=== PATIENT | male | born 1945 | race Caucasian/White ===

== ENCOUNTER 2016-12-19 08:05 | Inpatient (IN) ==
--- NOTE | 2016-12-19 08:24 | Emergency Department Note ---
Disposition Clinical Impression: GI bleed Qualifiers: GI bleed type/associated pathology: unspecified gastrointestinal hemorrhage type Qualified Code(s): K92.2 - Gastrointestinal hemorrhage, unspecified Disposition: Admitted As Inpatient Condition: Good [facility]errals: [facility] Care Provider[facility] - General Adult HPI - General Stated complaint: GI BLEED Time Seen by Provider: 12/19/16 08:07 Source: EMS Limitations: no limitations Vital Signs Reviewed: Yes - History of Present Illness HPI Narrative: 71 y/o male w/ total of 4BM's since 4am of BRBPR. No history of this. Colonoscopy in the last 10 years with no problem. ONly medication is lisinipril. No pain with BM's. Reports stool with blood on the outside followed by continuous. Admits to [facility]. No fever. Yesterday he had normal BM's. No fever. Feels lightheaded since this began. Went to [place] which was closed so he was sent here. Pain Scale: 0 Consistency: constant Improves with: nothing Worsens with: nothing Associated symptoms: Reports: denies other symptoms Treatments Prior to Arrival: none - Related Data Allergies Allergy/AdvReac Type Severity Reaction Status Date / Time No Known Allergies Allergy Verified 12/19/16 08:09 All systems ED: reviewed and negative except as stated. Constitutional: Denies: fever Eyes: Denies: vision change ENT ED: Denies: throat pain Cardiovascular: Denies: chest pain Respiratory: Denies: cough Gastrointestinal: Reports: hematochezia. Denies: abdominal pain, nausea, vomiting Genitourinary: Denies: dysuria Musculoskeletal: Denies: back pain Integumentary: Denies: rash Psychiatric: Denies: anxiety Endocrine: Reports: fatigue Past Medical History - Past Medical History Medical history: Reports: hypertension - Social History Smoking Status: Never smoker Smokeless Tobacco Status: No Alcohol use: Reports: none Drug use: Reports: none Physical Exam - General Limitations: no limitations General appearance: alert - Head Head exam: atraumatic - Eye Eye exam: Present: normal appearance, PERRL - ENT ENT exam: normal exam, normal oropharynx - Neck Neck exam: Present: normal inspection - Chest Chest inspection: Present: normal inspection - Respiratory Respiratory exam: Present: normal lung sounds bilaterally. Absent: respiratory distress - Cardiovascular Cardiovascular exam: Present: normal rhythm, tachycardia - Abdominal Exam Abdominal exam: Present: soft, Non-Tender - Extremities Exam Extremities exam: Present: normal inspection - Back Exam Back exam: Present: normal inspection - Neurological Exam Neurological exam: Present: alert, oriented X3 - Skin Skin exam: Present: warm, dry Course Course Narrative: GI bleed since 4am with lightheadedness. Mild tachycardia is present. BRBPR. Not on blood thinners. Will get H+H plus coags and type/screen. Positive hemaccult. Patient had a BM which was bright red blood without stool. Approx 1cm on bottom of bedside commode. - Reevaluation(s) Reevaluation #1: Hgb is stable but as he is losing blood he has not had time to equilibrate. He does feel lightheaded. Labwork otherwise stable. Accepted by Saniya for admission. Vital Signs Temperature 97.6 F 12/19/16 08:06 Pulse Rate 95 12/19/16 08:06 Respiratory Rate 18 12/19/16 08:06 Blood Pressure 150/101 12/19/16 08:06 O2 Sat by Pulse Oximetry 95 12/19/16 08:06 Temperature 97.6 F 12/19/16 08:06 Pulse Rate 95 12/19/16 08:06 Respiratory Rate 18 12/19/16 08:06 Blood Pressure 150/101 12/19/16 08:06 O2 Sat by Pulse Oximetry 95 12/19/16 08:06 Medical Decision Making - Medical Records Medical records reviewed: Yes I reviewed the patient's medical records. - Lab Data Lab results reviewed: Yes I reviewed the patient's lab results. Result diagrams: 12/19/16 08:21 12/19/16 08:21 Lab Results 12/19/16 12/19/16 12/19/16 Range/Units 08:21 08:21 08:21 WBC 4.4 (4.3-11.1) K/mcL RBC 4.38 (4.19-5.50) M/mcL Hgb 13.8 (12.9-16.9) g/dL Hct 38.4 (37.5-50.1) % MCV 87.7 (83.0-100.0) fL MCH 31.5 (28.0-33.3) pg MCHC 35.9 H (31.6-35.5) g/dL RDW 12.1 (11.5-14.5) % Plt Count 202 (140-400) K/mcL MPV 9.6 (9.4-12.4) fL Immature Gran % 0.2 (0-4) % Seg Neutrophils % 61.5 % Lymphocytes % 26.5 % Monocytes % 9.7 % Eosinophils % 1.6 % Basophils % 0.5 % Neutrophils # 2.7 (1.6-8.9) K/mcL Lymphocytes # 1.2 (0.6-4.6) K/mcL Monocytes # 0.4 (0.0-1.3) K/mcL Eosinophils # 0.1 (0.0-0.6) K/mcL Basophils # 0.0 (0.0-0.2) K/mcL PT 12.2 H (9.4-12.1) Seconds INR 1.1 APTT 29.1 (26.0-36.0) Seconds Sodium 139 (136-145) mEq/L Potassium 3.7 (3.5-4.5) mEq/L Chloride 108 (98-109) mEq/L Carbon Dioxide 21 (19-29) mEq/L BUN 16 (8-26) mg/dL Creatinine 0.71 L (0.72-1.25) mg/dL Est GFR ( Amer) > 60 (> 60) Est GFR (Non-Af Amer) > 60 (> 60) BUN/Creatinine Ratio 23 (6-26) Glucose 126 H (70-99) mg/dL Calculated Osmolality 291 (280-300) Calcium 8.6 (8.6-10.8) mg/dL - EKG Data EKG #1 EKG attestation: Yes I reviewed and interpreted this EKG. EKG shows normal: sinus rhythm Rate: normal Rhythm: NSR Sterling/QRS: normal Interpretation: no acute changes Attestation Statement - Attestation Attestation: I examined this patient and my medical decision-making was reviewed with the OBSTETRICS TECH/PA/Advanced Practice Nurse/Resident Physician. I agree with the documented findings, disposition and treatment plan as described except to the extent set forth below. Patient presents emergency Department with rectal bleeding. Patient presented to the [place] urgent care but they were not open yet. Brought here by medics. He states multiple bowel movements of bright red blood. He has had one since he has been here. On examination he is in no distress with a soft nontender abdomen. This bright red blood in the bedside commode and he has bright red blood on rectal exam. Plan. Hemoglobin stable. Patient was a significant amount of bleeding. Unknown source. Will be admitted. Attempting to get colonoscopy from the [place].
[2016-12-19 08:29] LABS: Basophils % 0.5 %; Eosinophils # 0.1 K/mcL (0.0-0.6); Eosinophils % 1.6 %; Hematocrit 38.4 % (37.5-50.1); Hemoglobin 13.8 g/dL (12.9-16.9); Immature Granulocytes % 0.2 % (0-4); Lymphocytes # 1.2 K/mcL (0.6-4.6); Lymphocytes % 26.5 %; Mean Corpuscular HGB Conc 35.9 g/dL (31.6-35.5); Mean Corpuscular Hemoglobin 31.5 pg (28.0-33.3); Mean Corpuscular Volume 87.7 fL (83.0-100.0); Mean Platelet Volume 9.6 fL (9.4-12.4); Monocytes # 0.4 K/mcL (0.0-1.3); Monocytes % 9.7 %; Neutrophils # 2.7 K/mcL (1.6-8.9); Platelet Count 202 K/mcL (140-400); Red Blood Count 4.38 M/mcL (4.19-5.50); Red Cell Distribution Width 12.1 % (11.5-14.5); Segmented Neutrophils % 61.5 %
[2016-12-19 08:36] LABS: INR 1.1; Prothrombin Time 12.2 Seconds (9.4-12.1)
[2016-12-19 08:39] LABS: Activated Partial Thrombo Time 29.1 Seconds (26.0-36.0)
[2016-12-19 08:40] LABS: BUN/Creatinine Ratio 23 (6-26); Blood Urea Nitrogen 16 mg/dL (8-26); Calcium 8.6 mg/dL (8.6-10.8); Carbon Dioxide 21 mEq/L (19-29); Chloride 108 mEq/L (98-109); Glucose 126 mg/dL (70-99); Osmolality,Calculated 291 (280-300); Potassium 3.7 mEq/L (3.5-4.5); Sodium 139 mEq/L (136-145); eGFR For African Americans > 60 (> 60); eGFR For Non-African Americans > 60 (> 60)
[2016-12-19] MEDS ORDERED: 0.9 % Sodium Chloride 1,000 ML IVC ONE (08:42)
[2016-12-19] MEDS ORDERED: Naloxone 0.4 MG/ML INJ IVP PRN (09:58)
--- NOTE | 2016-12-19 10:08 | Internal Med History&Physical ---
Date of Encounter: 12/19/16 Time of Encounter: 09:35 Internal Medicine - H&P: HPI Chief complaint: Painless bright red bleeding per rectum for 6 hours. Admitted From: Emergency Dept Plans for Post Hospital Care: Home History of present illness: Mr. Delcid is a 71 year old male 71 y/o male w/ total of 4BM's since 4am of BRBPR. No history of this. Colonoscopy in the last 10 years with no problem. ONly medication is lisinipril. No pain with BM's. Reports stool with blood on the outside followed by continuous. Admits to [facility]. No fever. Yesterday he had normal BM's. No fever. Feels lightheaded since this began. Went to [place] which was closed so he was sent here. Vital Signs Temperature 97.6 F 12/19/16 08:06 Pulse Rate 95 12/19/16 08:06 Respiratory Rate 18 12/19/16 08:06 Blood Pressure 150/101 12/19/16 08:06 O2 Sat by Pulse Oximetry 95 12/19/16 08:06 Temperature 97.6 F 12/19/16 08:06 Pulse Rate 95 12/19/16 08:06 Respiratory Rate 18 12/19/16 08:06 Blood Pressure 150/101 12/19/16 08:06 O2 Sat by Pulse Oximetry 95 12/19/16 08:06 Lab Results 12/19/16 12/19/16 12/19/16 Range/Units 08:21 08:21 08:21 WBC 4.4 (4.3-11.1) K/mcL RBC 4.38 (4.19-5.50) M/mcL Hgb 13.8 (12.9-16.9) g/dL Hct 38.4 (37.5-50.1) % MCV 87.7 (83.0-100.0) fL MCH 31.5 (28.0-33.3) pg MCHC 35.9 H (31.6-35.5) g/dL RDW 12.1 (11.5-14.5) % Plt Count 202 (140-400) K/mcL MPV 9.6 (9.4-12.4) fL Immature Gran % 0.2 (0-4) % Seg Neutrophils % 61.5 % Lymphocytes % 26.5 % Monocytes % 9.7 % Eosinophils % 1.6 % Basophils % 0.5 % Neutrophils # 2.7 (1.6-8.9) K/mcL Lymphocytes # 1.2 (0.6-4.6) K/mcL Monocytes # 0.4 (0.0-1.3) K/mcL Eosinophils # 0.1 (0.0-0.6) K/mcL Basophils # 0.0 (0.0-0.2) K/mcL PT 12.2 H (9.4-12.1) Seconds INR 1.1 APTT 29.1 (26.0-36.0) Seconds Sodium 139 (136-145) mEq/L Potassium 3.7 (3.5-4.5) mEq/L Chloride 108 (98-109) mEq/L Carbon Dioxide 21 (19-29) mEq/L BUN 16 (8-26) mg/dL Creatinine 0.71 L (0.72-1.25) mg/dL Est GFR ( Amer) > 60 (> 60) Est GFR (Non-Af Amer) > 60 (> 60) BUN/Creatinine Ratio 23 (6-26) Glucose 126 H (70-99) mg/dL Calculated Osmolality 291 (280-300) Calcium 8.6 (8.6-10.8) mg/dL Past Med Surg Social Fam HX - Past Medical History Medical history: hypertension - Social History Smoking Status: Never smoker Smokeless Tobacco Status: No Alcohol use: none Drug use: none Internal Medicine - H&P: Meds Lisinopril [Zestril] 20 mg PO DAILY 12/19/16 [History] Allergies acetaminophen [From Tylenol-Codeine #3] Allergy (Verified 12/19/16 09:01) Itching codeine [From Tylenol-Codeine #3] Allergy (Verified 12/19/16 09:01) Itching doxycycline Allergy (Verified 12/19/16 09:01) Rash tree and shrub pollen Allergy (Verified 12/19/16 09:01) Itching All Systems PM: A 10-system review of systems was performed and is negative for pertinent findings except as documented above in the HPI. - Constitutional Vitals: Temp Pulse Resp BP Pulse Ox 97.6 F 95 18 150/101 95 12/19/16 08:06 12/19/16 08:06 12/19/16 08:06 12/19/16 08:06 12/19/16 08:06 Internal Med - H&P Results - Labs CBC & Chem 7: 12/19/16 08:21 12/19/16 08:21 - VTE Reasons for not Prescribing Prophylaxis: Treatment not Indicated - Low risk for VTE
--- NOTE | 2016-12-19 10:25 | Internal Med History&Physical ---
Date of Encounter: 12/19/16 Time of Encounter: 09:30 Internal Medicine - H&P: HPI Chief complaint: Bright red bleeding per rectum since 4:00AM today. Admitted From: Emergency Dept Plans for Post Hospital Care: Home History of present illness: Mr. Delcid is a 71 year old male Mr. Delcid with medical history significant for hypertension, peptic ulcer disease presents with painless bright red bleeding per rectum starting at 4:00AM today. No tenesmus. Blood large fluid, only a littel clots. . No fever chills or rigor, no urinary symptoms, no diarrhea or constipation, no new-onset neurological symptoms. No chest pain, SOB, he reports mild lightheadedness. no weight gain. He was in the [place] [facility] this morning and was referred to [facility] ED. No Went to [place] which was closed so he was sent here. He underwent colonoscopy at the [facility] 1 year ago, this was reported as normal (patient's account). No personal or family history of gastrointestinal cancers. He is FULL CODE as per discussion, he nominates his sister in law, Ranjith Delcid ([phone]). ROS: A 10-point ROS was performed, positives and relevant negatives are detailed , system-symptom not mentioned assumed negative unless otherwise stated. Family history: Father, mother and sister have emphysema Vital Signs Temperature 97.6 F 12/19/16 08:06 Pulse Rate 95 12/19/16 08:06 Respiratory Rate 18 12/19/16 08:06 Blood Pressure 150/101 12/19/16 08:06 O2 Sat by Pulse Oximetry 95 12/19/16 08:06 Temperature 97.6 F 12/19/16 08:06 Pulse Rate 95 12/19/16 08:06 Respiratory Rate 18 12/19/16 08:06 Blood Pressure 150/101 12/19/16 08:06 O2 Sat by Pulse Oximetry 95 12/19/16 08:06 O/E: Not in distress, not ill or toxic looking HEENT: Not pale, anicteric, acyanotic, afebrile, mild tachypnea. Chest: CTAB Heart: RRR (@ (66), HS1.2 no murmur Abdomen: soft, non-tender, no masses. BS+. Bed side putty contains ateast 150 mls of laila blood. : no flank tenderness, no CVA tenderness, no suprapubic tenderness. MERCHANDISING [employer] LEAD: aao x 3, no focal neurological deficits. Psychiatry: mood is good, affect is congruent, speech is normal, thought process is logical and goal-directed. Extremities: no pedal edema, normal pedal pulse, no calf tenderness. Lab Results 12/19/16 12/19/16 12/19/16 Range/Units 08:21 08:21 08:21 WBC 4.4 (4.3-11.1) K/mcL RBC 4.38 (4.19-5.50) M/mcL Hgb 13.8 (12.9-16.9) g/dL Hct 38.4 (37.5-50.1) % MCV 87.7 (83.0-100.0) fL MCH 31.5 (28.0-33.3) pg MCHC 35.9 H (31.6-35.5) g/dL RDW 12.1 (11.5-14.5) % Plt Count 202 (140-400) K/mcL MPV 9.6 (9.4-12.4) fL Immature Gran % 0.2 (0-4) % Seg Neutrophils % 61.5 % Lymphocytes % 26.5 % Monocytes % 9.7 % Eosinophils % 1.6 % Basophils % 0.5 % Neutrophils # 2.7 (1.6-8.9) K/mcL Lymphocytes # 1.2 (0.6-4.6) K/mcL Monocytes # 0.4 (0.0-1.3) K/mcL Eosinophils # 0.1 (0.0-0.6) K/mcL Basophils # 0.0 (0.0-0.2) K/mcL PT 12.2 H (9.4-12.1) Seconds INR 1.1 APTT 29.1 (26.0-36.0) Seconds Sodium 139 (136-145) mEq/L Potassium 3.7 (3.5-4.5) mEq/L Chloride 108 (98-109) mEq/L Carbon Dioxide 21 (19-29) mEq/L BUN 16 (8-26) mg/dL Creatinine 0.71 L (0.72-1.25) mg/dL Est GFR ( Amer) > 60 (> 60) Est GFR (Non-Af Amer) > 60 (> 60) BUN/Creatinine Ratio 23 (6-26) Glucose 126 H (70-99) mg/dL Calculated Osmolality 291 (280-300) Calcium 8.6 (8.6-10.8) mg/dL CT abdomen: Pancolonic diverticulosis with evidence of diverticulitis Uncomplicated cholelithiasis IMP Major diverticular bleeding Chronic morbidities HTN PLAN Admit Type and screen Transfuse as indicated to keep HH>8 IVF NS @100 Trend HH Hold Lisinopril for now Clear liquid diet Low risk for DVT, no indication for DVT prophylaxis No indication for GI prophylaxis. Obtain records of last year's colonoscopy from the [facility]. I discussed my assessment with the patient with the patient, he verbalized understanding and is agreeable to admission. He is admitted due to high risk for continuing major lower GI bleeding. Past Med Surg Social Fam HX - Past Medical History Medical history: hypertension - Social History Smoking Status: Never smoker Smokeless Tobacco Status: No Alcohol use: none Drug use: none Internal Medicine - H&P: Meds Lisinopril [Zestril] 20 mg PO DAILY 12/19/16 [History] Allergies acetaminophen [From Tylenol-Codeine #3] Allergy (Verified 12/19/16 09:01) Itching codeine [From Tylenol-Codeine #3] Allergy (Verified 12/19/16 09:01) Itching doxycycline Allergy (Verified 12/19/16 09:01) Rash tree and shrub pollen Allergy (Verified 12/19/16 09:01) Itching All Systems PM: A 10-system review of systems was performed and is negative for pertinent findings except as documented above in the HPI. - Constitutional Vitals: Temp Pulse Resp BP Pulse Ox 97.6 F 95 18 150/101 95 12/19/16 08:06 12/19/16 08:06 12/19/16 08:06 12/19/16 08:06 12/19/16 08:06 Internal Med - H&P Results - Labs CBC & Chem 7: 12/19/16 08:21 12/19/16 08:21 - VTE Reasons for not Prescribing Prophylaxis: Treatment not Indicated - Low risk for VTE
[2016-12-19] MEDS: 0.9 % Sodium Chloride 1,000 ML IVC SCH ×2 (10:54→21:39)
[2016-12-19 12:49] LABS: Hematocrit 36.6 % (37.5-50.1); Hemoglobin 12.9 g/dL (12.9-16.9)
[2016-12-19] MEDS ORDERED: SODIUM CHLORIDE/NAHCO3/KCL/PEG 4,000 ML SOLN.RECON PO ONE (14:10)
--- NOTE | 2016-12-19 14:15 | Event Note ---
Date of Encounter: 12/19/16 Time of Encounter: 14:00 Patient seen with lower GI bleed most probably diverticular versus rule out other etiology. Recommendation: Follow H&H. Colonoscopy in a.m.
[2016-12-19] MEDS: Ondansetron 4 MG/2 ML VIAL IVP PRN (18:13)
[2016-12-19] MEDS ORDERED: Acetaminophen 325 MG TABLET PO ONE (18:22)
[2016-12-19] MEDS: Loratadine 10 MG TABLET PO SCH (18:40)
[2016-12-19 19:37] LABS: Hematocrit 34.5 % (37.5-50.1); Hemoglobin 12.3 g/dL (12.9-16.9)
[2016-12-20 00:47] LABS: Hematocrit 33.6 % (37.5-50.1); Hemoglobin 11.6 g/dL (12.9-16.9)
[2016-12-20 06:23] LABS: Hematocrit 34.6 % (37.5-50.1); Hemoglobin 11.9 g/dL (12.9-16.9)
[2016-12-20] MEDS: Loratadine 10 MG TABLET PO SCH (09:00)
--- NOTE | 2016-12-20 11:05 | Gastroenterology Consult Note ---
<Nima Wynn - Last Filed: 12/20/16 11:03> Date of Encounter: 12/20/16 Time of Encounter: 09:45 - Assessment and plan (1) GI bleed Current Visit: Yes Status: Acute Assessment and plan: Likely due to diverticular bleed. Keep pt NPO. Plan for colonoscopy today to evaluate. Qualifiers: GI bleed type/associated pathology: unspecified gastrointestinal hemorrhage type Qualified Code(s): K92.2 - Gastrointestinal hemorrhage, unspecified (2) Anemia Current Visit: Yes Status: Acute Assessment and plan: Secondary to GI bleeding. Continue to monitor CBC and transfuse PRBC as needed. Qualifiers: Anemia type: unspecified type Qualified Code(s): D64.9 - Anemia, unspecified (3) Diverticulosis Current Visit: Yes Status: Acute Assessment and plan: Noted on CT scan. Recommend daily fiber supplement. Qualifiers: Diverticulosis site: diverticulosis of large intestine Diverticulosis bleeding: diverticulosis with bleeding Qualified Code(s): K57.31 - Diverticulosis of large intestine without perforation or abscess with bleeding - Time Spent With Patient Total time spent is greater than 50% in coordination of care (as documented) at patient's floor/unit and/or counseling patient: GI History of Present Illness - Data of Consult Patient: new to practice Consult date: 12/20/16 Requesting Physician: Berny Benton - Consult Narrative Reason for consult: Lower GI Bleed History of present illness: Mr. Delcid is a 71 year old male with PMHx of HTN who presented to the ED with painless BRBPR that started at 4:00AM the day of admission. He went to the [place] which was closed and was sent here. He reports large amount of bright red blood with BM. He denies diarrhea, constipation, fever, chills, SOB, or chest pain. He reports having a colonoscopy at the [facility] 2-3 years ago which was normal. No family history of colon cancer. We were consulted to evaluate his GI bleeding. Procedures: Colonoscopy at [facility] 2-3 years ago, normal per pt report NSAIDs: None Anticoagulation: None Past Med Surg Social Fam HX - Past Medical History Medical history: hypertension - Social History Smoking Status: Never smoker Smokeless Tobacco Status: No Alcohol use: none Drug use: none - Gastrointestinal Gastrointestinal: Present: as per HPI - Constitutional Constitutional: as per HPI - EENT Eyes: as per HPI Ears: Present: as per HPI Nose, mouth and throat: Present: as per HPI - Cardiovascular Cardiovascular ROS: Present: as per HPI - Respiratory Respiratory IM: Present: as per HPI - Genitourinary Genitourinary: Absent: change in color, Urinary frequency - Neurological ROS Neurological GI: Present: as per HPI - Hematologic/Lymphatic Hematologic/Lymphatic pediatric: Present: as per HPI - Musculoskeletal Musculoskeletal ROS GI: Present: as per HPI - Integumentary Integumentary GI: Present: as per HPI - Psychiatric ROS Psychiatric GI: Present: as per HPI - Endocrine Endocrine IM: Present: as per HPI - Constitutional Vitals: Temp Pulse Resp BP Pulse Ox 97.7 F 58 16 144/80 95 12/20/16 07:16 12/20/16 07:16 12/20/16 07:16 12/20/16 07:16 12/20/16 07:16 General appearance: Present: cooperative, A&O X 3, no acute distress, answers questions appropriately - Head Head exam: Present: atraumatic, normocephalic - Eye Eye exam: Present: normal appearance, sclera anicteric - ENT ENT exam: Present: mucous membranes dry - Neck Neck exam general surgery: Present: normal inspection, trachea midline - Respiratory Respiratory exam: Present: CTAB. Absent: rales, rhonchi - Cardiovascular Cardiovascular exam: Present: RRR, +S1, +S2 - GI/Abdominal GI/Abdominal exam: Present: soft, no peritoneal signs. Absent: distended, firm , guarding, tenderness - Rectal Rectal exam: Present: deferred - Extremities Exam Extremities exam: Present: warm - Neurological Exam Neurological exam: Present: no focal deficits - Psychiatric Psychiatric exam: Present: normal affect, normal mood - Skin Skin exam: Present: dry, intact, normal color, warm Results - Labs CBC & Chem 7: 12/20/16 05:45 12/19/16 08:21 Labs: Last Result Calcium 8.6 mg/dL (8.6-10.8) 12/19/16 08:21 Stool Occult Blood Positive (Negative) A 12/19/16 08:45 Entire Visit Hgb 11.9 g/dL (12.9-16.9) L 12/20/16 05:45 Hct 34.6 % (37.5-50.1) L 12/20/16 05:45 PT 12.2 Seconds (9.4-12.1) H 12/19/16 08:21 - ABG ABG results: PT/INR, D-dimer PT 12.2 Seconds (9.4-12.1) H 12/19/16 08:21 - Impressions Impressions Abdomen/Pelvis CT 12/19/16 09:33 IMPRESSION: 1. Pancolonic diverticulosis without associated acute inflammatory changes. 2. No acute abdominal or pelvic abnormality. 3. Uncomplicated cholelithiasis. D/ / 12/19/2016 10:35:16 Abdiel Mi MD / yoanna Interpreting Provider: Abdiel Mi MD Consult Discharge Plan - Plan [facility]errals: [facility] [Primary Care Provider] - <Jesus Ko - Last Filed: 12/20/16 12:21> Date of Encounter: 12/20/16 Time of Encounter: 14:00 - Time Spent With Patient Total time spent is greater than 50% in coordination of care (as documented) at patient's floor/unit and/or counseling patient: GI History of Present Illness - Data of Consult Requesting Physician: Berny Benton - Consult Narrative History of present illness: Mr. Delcid is a 71 year old male - Constitutional Vitals: Temp Pulse Resp BP Pulse Ox 97.9 F 66 16 159/89 97 12/20/16 11:54 12/20/16 11:54 12/20/16 11:54 12/20/16 11:54 12/20/16 11:54 Results - Labs CBC & Chem 7: 12/20/16 05:45 12/19/16 08:21 Labs: Last Result Calcium 8.6 mg/dL (8.6-10.8) 12/19/16 08:21 Stool Occult Blood Positive (Negative) A 12/19/16 08:45 Entire Visit Hgb 11.9 g/dL (12.9-16.9) L 12/20/16 05:45 Hct 34.6 % (37.5-50.1) L 12/20/16 05:45 PT 12.2 Seconds (9.4-12.1) H 12/19/16 08:21 - ABG ABG results: PT/INR, D-dimer PT 12.2 Seconds (9.4-12.1) H 12/19/16 08:21 - Impressions Impressions Abdomen/Pelvis CT 12/19/16 09:33
[2016-12-20] MEDS ORDERED: Simethicone 40 MG/0.6 ML MLS IR ONE (12:22)
--- NOTE | 2016-12-20 12:23 | Pre-Sedation Evaluation ---
Pre-sedation evaluation - Pre-sedation checklist Date of procedure: 12/20/16 Recent Vitals: Last Vital Signs Temp 97.9 F 12/20/16 11:54 Pulse 66 12/20/16 11:54 Resp 16 12/20/16 11:54 BP 159/89 12/20/16 11:54 Pulse Ox 97 12/20/16 11:54 ASA Classification *see protocol: CLASS III-Severe systemic disease Plan of Care: Pt appropriate candidate for procedure/moderate/conscious sedation , Risks/benefits of procedure/sedation discussed w/ patient/family
[2016-12-20] MEDS ORDERED: *HR* FentaNYL (PF) 100 MCG/2 ML VIAL ONE (12:24)
[2016-12-20] MEDS ORDERED: *HR* Midazolam HCl 5 MG/5 ML VIAL IVP ONE (12:24)
[2016-12-20] MEDS: *HR* Midazolam HCl 5 MG/5 ML VIAL IVP PRN ×3 (12:27→12:31)
[2016-12-20] MEDS: *HR* FentaNYL (PF) 100 MCG/2 ML VIAL IVP PRN ×3 (12:27→12:31)
--- NOTE | 2016-12-20 13:06 | Internal Med Progress Note ---
<Mazin Delatorre - Last Filed: 12/20/16 13:39> Date of Encounter: 12/20/16 Time of Encounter: 09:50 - Assessment and plan (1) GI bleed Current Visit: Yes Status: Acute Assessment and plan: Most likely lower given his description. would highly suspect diverticulosis. Last episode of bleeding at approximately 4:00 AM Currently hemodynamically stable. [facility] NPO GI consulted and will have C scope later today. follow H/H transfuse if he becomes symptomatic or Hg < 7.0. Qualifiers: GI bleed type/associated pathology: unspecified gastrointestinal hemorrhage type Qualified Code(s): K92.2 - Gastrointestinal hemorrhage, unspecified (2) Acute blood loss anemia Current Visit: Yes Status: Acute Assessment and plan: secondary to #1 hemodynamically stable continue to follow vitals and H/H (3) Hypertension Current Visit: Yes Status: Acute Assessment and plan: currently within goal. Will plan to add back home medication in the AM if no further bleeding. (4) Sinusitis Current Visit: Yes Status: Acute Assessment and plan: Patient states he had onset of symptoms approximately 6-7 days ago. No fever. likely viral or allergic will treat symptomatically. (5) DVT prophylaxis Current Visit: Yes Status: Acute Assessment and plan: EPCDS - Subjective Interval history: Mr. Delcid is a 71 y.o. male who states his only past medical history is hypertension. He states that he began to have bright red blood per rectum yesterday afternoon and that it was " pouring out". he states that this stopped at approximately 4AM. He denies any abdominal pain. Admits to mild nausea and states that this is secondary to not having had anything to eat. He denies any fever or chills. He has no syncope or presyncope. he dose complain of some mild sinus pressure and rhinorrhea over the past 6-7 days. Denies cough wheeze or dyspnea. He has no further complaints or concerns at this time. - Constitutional Vitals: Temp Pulse Resp BP Pulse Ox 97.9 F 65 16 135/68 96 12/20/16 12:24 12/20/16 12:47 12/20/16 12:47 12/20/16 12:47 12/20/16 12:47 - Head Head exam: Present: atraumatic, normocephalic - Eye Eye exam: Present: PERRL, conjuntiva pink, sclera anicteric Pupils: Present: PERRL - Neck Neck exam general surgery: Present: supple, trachea midline. Absent: lymphadenopathy - Respiratory Respiratory exam: Present: CTAB. Absent: accessory muscle use, rales, rhonchi, wheezes - Cardiovascular Cardiovascular exam: Present: RRR, +S1, +S2. Absent: diastolic murmur, gallop, rubs, systolic murmur - GI/Abdominal GI/Abdominal exam: Present: normal bowel sounds, soft, no peritoneal signs. Absent: distended, tenderness - Rectal Rectal exam: Present: deferred (patietn states he will get colonoscopy this AM. ) - Extremities Exam Extremities exam: Present: warm, radial pulses palpable and symetrical. Absent : calf tenderness, cyanotic, pedal edema - Skin Skin exam: Present: dry, intact Internal Medicine: Result - Labs CBC & Chem 7: 12/20/16 05:45 12/19/16 08:21 Labs: Short CBC 12/19/16 12/20/16 12/20/16 Range/Units 19:06 00:25 05:45 Hgb 12.3 L 11.6 L 11.9 L (12.9-16.9) g/dL Hct 34.5 L 33.6 L 34.6 L (37.5-50.1) % - ABG Interpretation ABG results: PT/INR, D-dimer PT 12.2 Seconds (9.4-12.1) H 12/19/16 08:21 - Impressions Impressions Abdomen/Pelvis CT 12/19/16 09:33 IMPRESSION: 1. Pancolonic diverticulosis without associated acute inflammatory changes. 2. No acute abdominal or pelvic abnormality. 3. Uncomplicated cholelithiasis. D/ / 12/19/2016 10:35:16 Abdiel Mi MD / yoanna Interpreting Provider: Abdiel Mi MD - VTE Reasons for not Prescribing Prophylaxis: Treatment not Indicated - Low risk for VTE Consult Discharge Plan - Plan [facility]errals: [facility] [Primary Care Provider[facility] - <Berny Benton - Last Filed: 12/20/16 18:07> - Constitutional Vitals: Temp Pulse Resp BP Pulse Ox 97.5 F L 67 16 165/102 94 L 12/20/16 16:15 12/20/16 16:15 12/20/16 16:15 12/20/16 16:15 12/20/16 16:15 Internal Medicine: Result - Labs CBC & Chem 7: 12/20/16 13:39 12/19/16 08:21 - ABG Interpretation ABG results: PT/INR, D-dimer PT 12.2 Seconds (9.4-12.1) H 12/19/16 08:21 - Attending Attestation I examined this patient and my medical decision-making was reviewed with the SENIOR INTERNATIONAL TAX MANAGER/PA/Advanced Practice Nurse/Resident Physician. I agree with the documented findings, disposition and treatment plan as described except to the extent set forth below. Clonoscopy done, will monitor hb tomorow in am. Advance diet. Possible d/c tomorow in am if hb stable/
[2016-12-20] MEDS ORDERED: Saline Nasal Spray 44 ML BOTTLE NS PRN (13:09)
[2016-12-20] MEDS ORDERED: Acetaminophen 325 MG TABLET PO PRN (13:10)
[2016-12-20 13:47] LABS: Hematocrit 35.7 % (37.5-50.1); Hemoglobin 12.3 g/dL (12.9-16.9)
[2016-12-20] MEDS: Cetirizine HCl 5 MG/5 ML UDC PO SCH (14:31)
[2016-12-20] MEDS: Lisinopril 20 MG TABLET PO SCH (16:26)
[2016-12-20] MEDS: Ondansetron 4 MG/2 ML VIAL IVP PRN (23:51)
--- NOTE | 2016-12-21 06:15 | Electrocardiograph Report ---
[place] [id number] Test Date: 2016-12-19 Pat Name: Pino Delcid Department: 104 Room: 2A22 Gender: M Student Accounts Manager: : 1945 Requested By: Eric Rodarte Order Number: [id number] Reading MD: Raúl Vuong MD Measurements Intervals [place] Rate: 65 P: 45 AR: 195 QRS: -27 QRSD: 89 T: 9 QT: 403 QTc: 414 Interpretive Statements SINUS RHYTHM BORDERLINE LEFT AXIS DEVIATION Electronically Signed On 12-21-2016 6:13:41 EST by Raúl Vuong MD
[2016-12-21 06:37] LABS: Basophils % 0.3 %; Eosinophils # 0.1 K/mcL (0.0-0.6); Eosinophils % 2.4 %; Hematocrit 29.2 % (37.5-50.1); Immature Granulocytes % 0.3 % (0-4); Lymphocytes # 1.6 K/mcL (0.6-4.6); Lymphocytes % 27.4 %; Mean Corpuscular HGB Conc 35.3 g/dL (31.6-35.5); Mean Corpuscular Hemoglobin 31.2 pg (28.0-33.3); Mean Corpuscular Volume 88.5 fL (83.0-100.0); Mean Platelet Volume 10.2 fL (9.4-12.4); Monocytes # 0.5 K/mcL (0.0-1.3); Monocytes % 7.8 %; Neutrophils # 3.7 K/mcL (1.6-8.9); Platelet Count 204 K/mcL (140-400); Segmented Neutrophils % 61.8 %
[2016-12-21 06:38] LABS: Hemoglobin 10.3 g/dL (12.9-16.9)
--- NOTE | 2016-12-21 06:47 | Discharge Summary ---
<Mazin Delatorre - Last Filed: 12/21/16 17:31> Date of Encounter: 12/21/16 Time of Encounter: 15:43 - Discharge Diagnosis (1) GI bleed Priority: Primary Status: Acute Qualifiers: GI bleed type/associated pathology: unspecified gastrointestinal hemorrhage type Qualified Code(s): K92.2 - Gastrointestinal hemorrhage, unspecified (2) Acute blood loss anemia Priority: Primary Status: Acute (3) Hypertension Priority: Secondary Status: Acute Qualifiers: Qualified Code(s): I10 - Essential (primary) hypertension (4) Sinusitis Priority: Secondary Status: Acute Qualifiers: Qualified Code(s): J32.9 - Chronic sinusitis, unspecified (5) DVT prophylaxis Priority: Secondary Status: Acute (6) Diverticulosis Priority: Primary Status: Acute Qualifiers: Qualified Code(s): K57.90 - Diverticulosis of intestine, part unspecified, without perforation or abscess without bleeding - Discharge Medications Prescriptions: Saline Nasal [place] [[employer] Nasal [place]] 2 spray NS Q2H PRN #1 bottle PRN Reason: Congestion Home Medications: Lisinopril [Zestril] 20 mg PO DAILY 12/19/16 [History] Loratadine [Claritin] 10 mg PO DAILY tablet 12/21/16 [Rx] Saline Nasal [place] [[employer] Nasal [place]] 2 spray NS Q2H PRN #1 bottle 12/21/16 [Rx ] Allergies/Adverse Reactions: Allergies acetaminophen [From Tylenol-Codeine #3] Allergy (Verified 12/19/16 09:01) Itching codeine [From Tylenol-Codeine #3] Allergy (Verified 12/19/16 09:01) Itching doxycycline Allergy (Verified 12/19/16 09:01) Rash tree and shrub pollen Allergy (Verified 12/19/16 09:01) Itching Date of admission: 12/20/16 16:23 [facility] Discharging clinician: Mazin Delatorre Anticipated date of discharge: 12/21/16 - Patient Status Disposition: Home, Self-Care Condition: Good Functional capacity at discharge: independent ambulation Overall status at discharge: patient is back to baseline - Discharge Instructions Instructions: Gastrointestinal Bleeding (DC), Anemia (GEN) Follow Up With: DANIEL,PCP [Primary Care Provider] - 01/03/17 3:30 pm Forms: ED Satisfaction Letter - Diet and Activity Activity: increase activity as tolerated Diet: advance to your usual diet Hospital course: Mr. Delcid is a 71 year old male with pmh of HTN, who was admitted to [facility] for GI bleed. It was bright red blood per rectum and likely a lower GI bleed. He would undergo colonoscopy which revealed 2 polyps and diverticulosis throughout the colon. No active bleeding was seen. Most likely his bleeding was secondary to his diverticulosis. He has had no more bloody bowel movements since his colonoscopy yesterday. Hg is stable and is 10.5 today. His vitals are within normal limits. He has no complaints this AM. We will discharge him to follow up with [facility] PCP [facility]. - Time Spent with Patient Total time spent providing and/or coordinating discharge services: Less than 30 minutes - Constitutional Vitals: Temp Pulse Resp BP Pulse Ox 98.0 F 70 20 154/92 95 12/21/16 04:40 12/21/16 04:40 12/21/16 04:40 12/21/16 04:40 12/21/16 04:40 General appearance: Present: A&O X 3, pleasant, no acute distress - Head Head exam: Present: atraumatic, normocephalic - Eye Eye exam: Present: PERRL, conjuntiva pink, sclera anicteric Pupils: Present: PERRL - Neck Neck exam general surgery: Present: supple, trachea midline. Absent: lymphadenopathy - Respiratory Respiratory exam: Present: CTAB. Absent: accessory muscle use, rales, rhonchi, wheezes - Cardiovascular Cardiovascular exam: Present: RRR, +S1, +S2. Absent: diastolic murmur, gallop, rubs, systolic murmur - GI/Abdominal GI/Abdominal exam: Present: normal bowel sounds, soft, no peritoneal signs. Absent: distended, tenderness - Extremities Exam Extremities exam: Present: warm, radial pulses palpable and symetrical. Absent : calf tenderness, cyanotic, pedal edema - Skin Skin exam: Present: dry, intact - VTE Reasons for not Prescribing Prophylaxis: Treatment not Indicated - Low risk for VTE <Berny Benton - Last Filed: 12/22/16 07:13> Date of admission: 12/20/16 16:23 Primary care physician: PCP [facility] Hospital course: Mr. Delcid is a 71 year old male - Time Spent with Patient Total time spent providing and/or coordinating discharge services: - Constitutional Vitals: Temp Pulse Resp BP Pulse Ox 98.1 F 66 17 139/84 96 12/21/16 15:16 12/21/16 15:16 12/21/16 15:16 12/21/16 15:16 12/21/16 15:16 - Attending Attestation I examined this patient and my medical decision-making was reviewed with the MANAGER WATER WASTEWATER/PA/Advanced Practice Nurse/Resident Physician. I agree with the documented findings, disposition and treatment plan as described except to the extent set forth below. Agree with Dr. Delatorre. GI bleeding due to diverticular disease. Hb stable, GI input noted. D/C home today. D/W patient.
[2016-12-21 06:53] LABS: BUN/Creatinine Ratio 11 (6-26); Blood Urea Nitrogen 8 mg/dL (8-26); Calcium 7.7 mg/dL (8.6-10.8); Carbon Dioxide 22 mEq/L (19-29); Chloride 113 mEq/L (98-109); Glucose 115 mg/dL (70-99); Osmolality,Calculated 291 (280-300); Potassium 3.6 mEq/L (3.5-4.5); Sodium 141 mEq/L (136-145); eGFR For African Americans > 60 (> 60); eGFR For Non-African Americans > 60 (> 60)
[2016-12-21] MEDS ORDERED: Lisinopril 20 MG TABLET PO SCH (09:00)
[2016-12-21] MEDS: Cetirizine HCl 5 MG/5 ML UDC PO SCH (09:26)
[2016-12-21] MEDS: Loratadine 10 MG TABLET PO SCH (09:26)
[2016-12-21] MEDS: Lisinopril 20 MG TABLET PO SCH (09:26)
[2016-12-21] MEDS: 0.9 % Sodium Chloride 1,000 ML IVC SCH (09:28)
--- NOTE | 2016-12-21 11:48 | Gastroenterology Progress Note ---
Date of Encounter: 12/21/16 Time of Encounter: 10:00 - Assessment and plan (1) Rectal bleeding Current Visit: Yes Status: Acute Assessment and plan: Most probably due to diverticulosis. No rectal bleeding. From GI point of view patient is okay to be discharged. - Time Spent With Patient Total time spent is greater than 50% in coordination of care (as documented) at patient's floor/unit and/or counseling patient: - Subjective Interval history: Mr. Delcid is a 71 y.o. male who is in the hospital because of rectal bleeding. No more bleeding at this point denies any abdominal pain. - Constitutional Vitals: Temp Pulse Resp BP Pulse Ox 97.9 F 64 17 148/80 96 12/21/16 11:17 12/21/16 11:17 12/21/16 11:17 12/21/16 11:17 12/21/16 11:17 General appearance: Present: cooperative, A&O X 3, no acute distress, answers questions appropriately - GI/Abdominal GI/Abdominal exam: Present: soft Additional comments: No focal left-sided tenderness - Skin Skin exam: Present: dry, warm Results - Labs CBC & Chem 7: 12/21/16 06:01 12/21/16 06:01 Labs: Last Result Calcium 7.7 mg/dL (8.6-10.8) L 12/21/16 06:01 Stool Occult Blood Positive (Negative) A 12/19/16 08:45 Entire Visit Hgb 10.3 g/dL (12.9-16.9) L D 12/21/16 06:01 Hct 29.2 % (37.5-50.1) L 12/21/16 06:01 PT 12.2 Seconds (9.4-12.1) H 12/19/16 08:21 - ABG ABG results: PT/INR, D-dimer PT 12.2 Seconds (9.4-12.1) H 12/19/16 08:21 - VTE Reasons for not Prescribing Prophylaxis: Treatment not Indicated - Low risk for VTE Consult Discharge Plan - Plan [facility]errals: [facility] [Primary Care Provider] - 01/03/17 3:30 pm Prescriptions: Saline Nasal [place] [[place] Nasal [place]] 2 spray NS Q2H PRN #1 bottle PRN Reason: Congestion
[2016-12-21 12:44] LABS: Hemoglobin 10.5 g/dL (12.9-16.9)
[2016-12-21 15:17] VITALS: BP 139/84
== END 2016-12-21 16:55 | disposition home or self-care (01) | DRG 348 ==
LOC: EMEROO 08:05 → 2ANU 08:05 → SUATTDRO 08:59 → 2ANU 11:16
PROVIDERS: ADMIT Internal Medicine; ATTEND Internal Medicine

== ENCOUNTER 2016-12-25 01:35 | Inpatient (IN) ==
[2016-12-25] MEDS ORDERED: Ondansetron 4 MG/2 ML VIAL IVP ONE (02:12)
[2016-12-25] MEDS ORDERED: 0.9 % Sodium Chloride 1,000 ML IVC ONE (02:12)
--- NOTE | 2016-12-25 02:15 | Emergency Department Note ---
Disposition Clinical Impression: Lower gastrointestinal hemorrhage Disposition: Admitted As Inpatient Condition: Fair Referrals: [facility] [Primary Care Provider] - Forms: ED Satisfaction Letter Time of Disposition: 03:19 GI Bleed HPI - General Chief complaint: ED GI Bleed Stated complaint: bright red rectal bleeding Time Seen by Provider: 12/25/16 02:12 Source: patient Mode of arrival: ambulatory Limitations: no limitations Nursing Notes Reviewed: Yes Vital Signs Reviewed: Yes - History of Present Illness HPI Narrative: Patient presents to the ED for complaints of bright red rectal bleeding. He was admitted last week for same complaint. He did receive a colonoscopy which showed diverticulosis, and was discharged to home on Saturday. He states through the weekend he continued to have bloody rectal stools, about 40-50 stoolings since that time. Today he states he is having stooling several times an hour. 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 No emesis reported. . His Hgb on 10/18 was 12.3, today it has dropped to 8.6. Pt Subjective Complaint: gross bloody stools Onset (ago): day(s) (4) Consistency: Worsening Severity: moderate, severe Improves with: nothing Context: history of GI bleed Associated symptoms: Reports: nausea, loss of appetite. Denies: vomiting Treatments Prior to Arrival: none - Related Data Home Medications Medication Instructions Recorded Confirmed Lisinopril [Zestril] 20 mg PO DAILY 12/19/16 12/19/16 Previous Rx's Medication Instructions Recorded Loratadine [Claritin] 10 mg PO DAILY tablet 12/21/16 Saline Nasal [place] [[place] Nasal 2 spray NS Q2H PRN #1 bottle 12/21/16 [place]] Allergies Allergy/AdvReac Type Severity Reaction Status Date / Time acetaminophen Allergy Itching Verified 12/25/16 01:36 [From Tylenol-Codeine #3] codeine Allergy Itching Verified 12/25/16 01:36 [From Tylenol-Codeine #3] doxycycline Allergy Rash Verified 12/25/16 01:36 tree and shrub pollen Allergy Itching Verified 12/25/16 01:36 All systems ED: reviewed and negative except as stated. Constitutional: Denies: fever, chills, weakness, weight change Cardiovascular: Denies: chest pain, palpitations, dyspnea on exertion, edema, syncope Respiratory: Denies: cough, dyspnea, wheezes, hemoptysis, stridor Gastrointestinal: Reports: nausea, hematochezia. Denies: vomiting Genitourinary: Denies: urgency, dysuria, frequency, hematuria Past Medical History - Past Medical History Attestation: Yes The following information was validated with the patient. Source: patient, nursing notes reviewed Medical history: Reports: hypertension, other Psychiatric history: Reports: no psych history - Social History Smoking Status: Never smoker Smokeless Tobacco Status: No Alcohol use: Reports: none Drug use: Reports: marijuana Physical Exam - General Limitations: no limitations General appearance: alert - Head Head exam: atraumatic, normocephalic, normal inspection - Eye Eye exam: Present: normal appearance, PERRL, EOMI - ENT ENT exam: normal exam, normal oropharynx, mucous membranes moist - Neck Neck exam: Present: normal inspection, full ROM, trachea midline - Chest Chest inspection: Present: normal inspection, symmetric chest wall rise - Respiratory Respiratory exam: Present: normal lung sounds bilaterally - Cardiovascular Cardiovascular exam: Present: regular rate, normal rhythm, normal heart sounds - Abdominal Exam Abdominal exam: Present: soft, Non-Tender, normal bowel sounds. Absent: distention, guarding, rebound - Rectal Exam Rectal exam: Present: heme (+) stool. Absent: hemorrhoids, mass, tenderness - Extremities Exam Extremities exam: Present: normal inspection, full ROM. Absent: tenderness, pedal edema - Neurological Exam Neurological exam: Present: alert, oriented X3 - Psychiatric Psychiatric exam: Present: normal affect, normal mood - Skin Skin exam: Present: warm, dry, intact, normal color Course - Consultations Consultation #1: Spoke with hospitalist, Dr. Moreno who accepted patient for admission to the hospital. Time: 02:50 Vital Signs Temperature 97.9 F 12/25/16 01:36 Pulse Rate 104 12/25/16 01:36 Respiratory Rate 20 12/25/16 01:36 Blood Pressure 155/89 12/25/16 01:36 O2 Sat by Pulse Oximetry 100 12/25/16 01:36 Temperature 97.9 F 12/25/16 01:36 Pulse Rate 104 12/25/16 01:36 Respiratory Rate 20 12/25/16 01:36 Blood Pressure 155/89 12/25/16 01:36 O2 Sat by Pulse Oximetry 100 12/25/16 01:36 Oxygen Delivery Oxygen Delivery Room Air GI Bleed - Differential Diagnosis Likely: hematochezia
[2016-12-25 02:20] LABS: Basophils % 0.5 %; Eosinophils # 0.2 K/mcL (0.0-0.6); Eosinophils % 2.4 %; Hematocrit 24.8 % (37.5-50.1); Immature Granulocytes % 2.5 % (0-4); Lymphocytes # 2.9 K/mcL (0.6-4.6); Lymphocytes % 33.7 %; Mean Corpuscular HGB Conc 34.7 g/dL (31.6-35.5); Mean Corpuscular Hemoglobin 31.2 pg (28.0-33.3); Mean Corpuscular Volume 89.9 fL (83.0-100.0); Mean Platelet Volume 10.1 fL (9.4-12.4); Monocytes # 0.8 K/mcL (0.0-1.3); Monocytes % 8.8 %; Neutrophils # 4.5 K/mcL (1.6-8.9); Nucleated Red Blood Cells 0.3 /100 WBC (0); Platelet Count 356 K/mcL (140-400); Red Blood Count 2.76 M/mcL (4.19-5.50); Segmented Neutrophils % 52.1 %
[2016-12-25 02:24] LABS: Hemoglobin 8.6 g/dL (12.9-16.9)
[2016-12-25 02:29] LABS: INR 1.1; Prothrombin Time 12.4 Seconds (9.4-12.1)
[2016-12-25 02:31] LABS: Activated Partial Thrombo Time 28.5 Seconds (26.0-36.0)
[2016-12-25 02:34] LABS: Alanine Aminotransferase 13 Units/L (0-55); Albumin 2.9 g/dL (3.5-5.0); Alkaline Phosphatase 40 Units/L (38-126); Aspartate Amino Transferase 13 Units/L (5-34); BUN/Creatinine Ratio 20 (6-26); Bilirubin,Total 0.3 mg/dL (0.2-1.2); Blood Urea Nitrogen 17 mg/dL (8-26); Calcium 8.3 mg/dL (8.6-10.8); Carbon Dioxide 21 mEq/L (19-29); Chloride 109 mEq/L (98-109); Glucose 140 mg/dL (70-99); Lipase 49 Units/L (8-78); Osmolality,Calculated 296 (280-300); Potassium 3.2 mEq/L (3.5-4.5); Sodium 141 mEq/L (136-145); Total Protein 5.9 g/dL (6.0-8.3); eGFR For African Americans > 60 (> 60); eGFR For Non-African Americans > 60 (> 60)
--- NOTE | 2016-12-25 02:37 | Emergency Department Note ---
START Narrative - START START: I examined this patient and my medical decision-making was reviewed with the AVIONICS TECHNICIAN/PA/Advanced Practice Nurse/Resident Physician. I agree with the documented findings, disposition and treatment plan as described except to the extent set forth below. ED attending note: Patient seen with nurse practitioner Sia Brooke. Please see a copy of his note for details of the H&P, evaluation, management and disposition of this patient. We independently had [id number] contact with the patient Briefly: 71-year-old male history of rectal bleeding admitted at [facility] for same. Discharged home a few days ago back with lightheadedness and persistent rectal bleeding. This panel Blood per rectum hemoglobin is drop several points. 28.2. Patient is being typed and crossed and will be readmitted for transfusion for symptomatic anemia and rectal bleeding. We have provided 50 minutes of critical care services for this patient.
--- NOTE | 2016-12-25 03:24 | Internal Med History&Physical ---
<NoéElmo - Last Filed: 12/25/16 05:05> Date of Encounter: 12/25/16 Time of Encounter: 03:20 Assessment and Plan (1) Lower gastrointestinal hemorrhage Current visit: Yes Status: Acute Given patient's history of multiple diverticulosis seen on last week's colonoscopy, that is the likely etiology of GI bleeding Cannot rule out brisk upper bleed, but will consult GI for further management if procedures are necessary Start GI prophylaxis with IV protonix, and support with anti-emetics and maintenance IVFs while NPO He has been typed and screened and two units of pRBCs are ready Consider surgical consult in future if he is a candidate for intervention (2) Acute blood loss anemia Current visit: No Status: Acute Hb was 8.6 upon admission, and he was 10.5 upon discharge last Saturday Will transfuse 2 units of pRBCs given he is symptomatic with lightheadedness/ dizziness and has lactic acidosis/tachycardia Patient is currently hemodynamically stable, will recheck CBC after transfusion (3) Lactic acidosis Current visit: Yes Status: Acute Likely secondary to hypoperfusion in setting of blood loss anemia Cannot completely rule out sepsis in this scenario, and will obtain blood cultures No indication to start antibiotics for now, but will consider coverage of anaerobes/gram negatives if abx necessary (4) Hypertension Current visit: No Status: Chronic Blood pressure have been stable since admission Will continue on home dose of Lisinopril Qualifiers: Qualified Code(s): I10 - Essential (primary) hypertension (5) DVT prophylaxis Current visit: No Status: Acute SCDs in setting of acute blood loss anemia Internal Medicine - H&P: HPI Chief complaint: GI Bleed Admitted From: Home Plans for Post Hospital Care: Home History of present illness: Mr. Delcid is a 71 year old male who presents to emergency department with rectal bleeding, describing it as watery and bright red. He was recently admitted here for the same problem last week where he received a colonoscopy that identified small nonbleeding diverticuli and 2 polyps which were biopsied. Patient admits to telling staff that he had stopped bleeding from his rectum prior to discharge last time, when in reality he continued to have bright red blood per rectum. He also claims that he has been having 40-50 bright red bowel movements over the weekend, and he has not stopped bleeding since being discharged. He also complains of mild nausea without any vomiting, but denies any hematuria, abdominal pain, or pain with defecation. He states that his appetite has been somewhat decreased due to nausea, but has no issues with eating or drinking. Patient also states he has felt lightheaded and dizzy especially when he walks, but has not fallen or sustained any injuries recently. He states that he has had no issues with bleeding prior to his last admission, and has never been on any blood thinners. Past Med Surg Social Fam HX - Past Medical History Medical history: hypertension, other Psychiatric history: no psych history - Social History Smoking Status: Never smoker Smokeless Tobacco Status: No Alcohol use: none Drug use: marijuana Internal Medicine - H&P: Meds Lisinopril [Zestril] 20 mg PO DAILY 12/19/16 [History] Loratadine [Claritin] 10 mg PO DAILY tablet 12/21/16 [Rx] Saline Nasal Bridger [[place] Nasal Bridger] 2 spray NS Q2H PRN #1 bottle 12/21/16 [Rx ] Allergies acetaminophen [From Tylenol-Codeine #3] Allergy (Verified 12/25/16 01:36) Itching codeine [From Tylenol-Codeine #3] Allergy (Verified 12/25/16 01:36) Itching doxycycline Allergy (Verified 12/25/16 01:36) Rash tree and shrub pollen Allergy (Verified 12/25/16 01:36) Itching All Systems PM: A 10-system review of systems was performed and is negative for pertinent findings except as documented above in the HPI. - Constitutional Constitutional: anorexia, no chills, no fever(s), no falls, no night sweats - EENT Eyes: no change in vision, no discharge, no pain, no photophobia Ears: no ear discharge, no ear pain, no tinnitus Nose, mouth and throat: no dysphagia, no nasal discharge, no neck pain, no sore throat - Cardiovascular Cardiovascular ROS IM: dyspnea on exertion, no chest pain, no diaphoresis, no dyspnea, no lightheadedness, no palpitations, no syncope - Respiratory Respiratory: no cough, no dyspnea, no wheezing, no excessive phlegm production - Gastrointestinal Gastrointestinal: diarrhea, hematochezia, nausea, no abdominal pain, no hematemesis, no melena, no vomiting - Musculoskeletal Musculoskeletal ROS IM: no numbness, no tingling - Integumentary Integumentary IM: no rash, no unusual bruising - Neurological Neurological ROS: no confusion, no convulsions, no focal weakness, no numbness, no tingling, no tremor(s) - Hematologic/Lymphatic Hematologic/Lymphatic: no easy bruising - Constitutional Vitals: Temp Pulse Resp BP Pulse Ox 97.9 F 72 16 118/71 96 12/25/16 01:36 12/25/16 02:58 12/25/16 03:06 12/25/16 03:06 12/25/16 02:58 General appearance: Present: cooperative, pleasant, no acute distress, answers questions appropriately - Head Head exam: Present: atraumatic, normocephalic - Eye Eye exam: Present: PERRL, conjuntiva pink, sclera anicteric - Neck Neck exam general surgery: Present: supple, trachea midline. Absent: lymphadenopathy - Respiratory Respiratory exam: Present: CTAB. Absent: accessory muscle use, rales, rhonchi, wheezes - Cardiovascular Cardiovascular exam: Present: RRR, +S1, +S2. Absent: diastolic murmur, gallop, rubs, systolic murmur - GI/Abdominal GI/Abdominal exam: Present: normal bowel sounds, soft, no peritoneal signs. Absent: distended, firm, guarding, tenderness - Extremities Exam Extremities exam: Present: warm, radial pulses palpable and symetrical. Absent : calf tenderness, cyanotic, pedal edema - Neurological Exam Neurological exam: Present: alert, oriented X3, no focal deficits. Absent: facial droop, speech deficit - Skin Skin exam: Present: dry, intact, pallor Internal Med - H&P Results - Labs CBC & Chem 7: 12/25/16 02:03 12/25/16 02:03 <Contreras Valdivia - Last Filed: 12/25/16 06:19> Date of Encounter: 12/25/16 Past Med Surg Social Fam HX - Past Surgical History Surgical History: other (recent colonoscopy) - Family History Mother Living Status: Hx Family Respiratory Disorders: Yes (Emphysema) Hx Family GI Disorders: No Father Living Status: Hx Family Respiratory Disorders: Yes (Emphysema) Hx Family GI Disorders: No All Systems PM: A 10-system review of systems was performed and is negative for pertinent findings except as documented above in the HPI. - Constitutional Vitals: Temp Pulse Resp BP Pulse Ox 98.5 F 71 19 130/75 97 12/25/16 03:38 12/25/16 03:38 12/25/16 03:38 12/25/16 03:38 12/25/16 03:40 General appearance: Present: A&O X 3, pleasant, no acute distress - Head Head exam: Present: normal inspection - Eye Eye exam: Present: PERRL. Absent: scleral icterus - ENT ENT exam: Present: mucous membranes moist, normal exam - Neck Neck exam general surgery: Present: supple - Respiratory Respiratory exam: Present: CTAB. Absent: rales, rhonchi, wheezes - Cardiovascular Cardiovascular exam: Present: RRR, +S1, +S2 - GI/Abdominal GI/Abdominal exam: Present: soft. Absent: hepatomegaly, splenomegaly, tenderness - Extremities Exam Extremities exam: Present: normal capillary refill, warm. Absent: joint swelling - Skin Skin exam: Present: dry, warm. Absent: rash Internal Med - H&P Results - Labs CBC & Chem 7: 12/25/16 02:03 12/25/16 02:03 - Attending Attestation I discussed the pt [place], PMH, ROS, lab data, and exam findings with Dr. Umanzor. I then saw and examined patient independently as well. Pt feels comfortable and has no complaints presently. He admits to frequent bloody BM's this weekend. He denies any stomach or epigastric pain. Furthermore, he denies any GERD, FH PUD, or any personal history of ulcers. I agree with Dr. Umanzor in that patient is not septic. Lactic acidosis likely from GI blood loss and hypoperfusion. I agree with blood cultures and monitoring closely. I do not feel antibiotics are indicated at this time. I agree with PRBC transfusion and Dr. Ko consult. Other than my comments above and noted exam findings, I agree with Dr. Umanzor's assessment and plan.
[2016-12-25] MEDS ORDERED: Ondansetron 4 MG/2 ML VIAL IVP PRN (03:34)
[2016-12-25] MEDS ORDERED: *HR* Morphine 2 MG/ML SYRINGE IVP PRN (03:34)
[2016-12-25] MEDS ORDERED: Naloxone 0.4 MG/ML INJ IVP PRN (03:34)
[2016-12-25] MEDS ORDERED: 0.9 % Sodium Chloride 1,000 ML IVC SCH (05:15)
[2016-12-25] MEDS ORDERED: 0.9 % Sodium Chloride 250 ML ONE (06:07)
[2016-12-25] MEDS: Pantoprazole 40 MG VIAL IVP SCH (08:35)
[2016-12-25] MEDS: Lisinopril 20 MG TABLET PO SCH (08:35)
[2016-12-25 10:10] LABS: Basophils % 0.4 %; Eosinophils # 0.1 K/mcL (0.0-0.6); Eosinophils % 1.8 %; Hematocrit 22.1 % (37.5-50.1); Hemoglobin 7.6 g/dL (12.9-16.9); Immature Granulocytes % 2.4 % (0-4); Mean Corpuscular HGB Conc 34.4 g/dL (31.6-35.5); Mean Corpuscular Hemoglobin 31.1 pg (28.0-33.3); Mean Corpuscular Volume 90.6 fL (83.0-100.0); Mean Platelet Volume 9.2 fL (9.4-12.4); Monocytes # 0.5 K/mcL (0.0-1.3); Monocytes % 7.9 %; Nucleated Red Blood Cells 0.3 /100 WBC (0); Platelet Count 248 K/mcL (140-400); Red Blood Count 2.44 M/mcL (4.19-5.50); Red Cell Distribution Width 13.3 % (11.5-14.5); Segmented Neutrophils % 58.5 %
[2016-12-25 10:20] LABS: BUN/Creatinine Ratio 17 (6-26); Blood Urea Nitrogen 13 mg/dL (8-26); Calcium 7.4 mg/dL (8.6-10.8); Carbon Dioxide 21 mEq/L (19-29); Chloride 112 mEq/L (98-109); Glucose 105 mg/dL (70-99); Osmolality,Calculated 288 (280-300); Sodium 139 mEq/L (136-145); eGFR For African Americans > 60 (> 60); eGFR For Non-African Americans > 60 (> 60)
--- NOTE | 2016-12-25 11:13 | Gastroenterology Consult Note ---
<Nima Wynn - Last Filed: 12/25/16 11:10> Date of Encounter: 12/25/16 Time of Encounter: 09:55 - Assessment and plan (1) Lower gastrointestinal hemorrhage Current Visit: Yes Status: Acute Assessment and plan: Recent colonoscopy showed diverticulosis in the entire colon and internal hemorrhoids. Patient continues to have frequent bowel movements with bright red blood. Check bleeding scan today. Consider EGD and/or repeat colonoscopy. (2) Acute blood loss anemia Current Visit: No Status: Acute Assessment and plan: Secondary to GI bleeding. Hgb 8.6 on admission. 2 units PRBC have been ordered. Continue to monitor CBC and transfuse PRBC as needed. (3) Diverticulosis Current Visit: No Status: Acute Assessment and plan: Noted in the entire colon during colonoscopy. Recommend daily fiber supplement. Qualifiers: Diverticulosis site: diverticulosis of large intestine Diverticulosis bleeding: diverticulosis with bleeding Qualified Code(s): K57.31 - Diverticulosis of large intestine without perforation or abscess with bleeding - Time Spent With Patient Total time spent is greater than 50% in coordination of care (as documented) at patient's floor/unit and/or counseling patient: GI History of Present Illness - Data of Consult Patient: known to practice within the last 3 years Consult date: 12/25/16 Requesting Physician: Jennyfer Castro MD - Consult Narrative Reason for consult: Rectal bleed History of present illness: Mr. Delcid is a 71 year old male with PMHx of HTN and recent rectal bleeding likely due to diverticulosis. The patient presented to the ED with water bright red blood per rectum. He was admitted for the same problem last week and colonoscopy was completed which identified diverticulosis in the entire colon. Hgb on admission was 8.6 and was 10.5 at discharge on 12/21/16. Patient admits to telling staff that he had stopped bleeding from his rectum prior to discharge last time, when in reality he continued to have bright red blood per rectum. He also claims that he has been having 40-50 bright red bowel movements over the weekend, and he has not stopped bleeding since being discharged. He complains of nausea, but denies vomiting or hematemesis. He denies abdominal pain or pain with BM. Procedures: Colonoscopy 12/20/2016 with diverticulosis in entire colon, internal hemorrhoids, and 2 polyps removed <10 mm; one was possible sessile serrated adenoma - repeat Cscope 3 years. NSAIDs: None Anticoagulation: None Past Med Surg Social Fam HX - Past Medical History Medical history: hypertension, other Psychiatric history: no psych history - Past Surgical History Surgical History: other (recent colonoscopy) - Social History Smoking Status: Never smoker Smokeless Tobacco Status: No Alcohol use: none Drug use: marijuana - Family History Mother Living Status: Hx Family Respiratory Disorders: Yes (Emphysema) Hx Family GI Disorders: No Father Living Status: Hx Family Respiratory Disorders: Yes (Emphysema) Hx Family GI Disorders: No Sister Living Status: Hx Family Respiratory Disorders: Yes (Emphysema) - Gastrointestinal Gastrointestinal: Present: as per HPI - Constitutional Constitutional: as per HPI - EENT Eyes: as per HPI Ears: Present: as per HPI Nose, mouth and throat: Present: as per HPI - Cardiovascular Cardiovascular ROS: Present: as per HPI - Respiratory Respiratory IM: Present: as per HPI - Genitourinary Genitourinary: Absent: change in color, Urinary frequency - Neurological ROS Neurological GI: Present: as per HPI - Hematologic/Lymphatic Hematologic/Lymphatic pediatric: Present: as per HPI - Musculoskeletal Musculoskeletal ROS GI: Present: as per HPI - Integumentary Integumentary GI: Present: as per HPI - Psychiatric ROS Psychiatric GI: Present: as per HPI - Endocrine Endocrine IM: Present: as per HPI - Constitutional Vitals: Temp Pulse Resp BP Pulse Ox 98.4 F 65 14 135/84 95 12/25/16 09:20 12/25/16 09:20 12/25/16 09:20 12/25/16 09:20 12/25/16 09:20 General appearance: Present: cooperative, A&O X 3, no acute distress, answers questions appropriately - Head Head exam: Present: atraumatic, normocephalic - Eye Eye exam: Present: normal appearance, sclera anicteric - ENT ENT exam: Present: mucous membranes moist - Neck Neck exam general surgery: Present: normal inspection, trachea midline - Respiratory Respiratory exam: Present: CTAB. Absent: rales, rhonchi - Cardiovascular Cardiovascular exam: Present: RRR, +S1, +S2 - GI/Abdominal GI/Abdominal exam: Present: soft, no peritoneal signs. Absent: distended, firm , guarding, tenderness - Rectal Rectal exam: Present: deferred - Extremities Exam Extremities exam: Present: warm - Neurological Exam Neurological exam: Present: no focal deficits - Psychiatric Psychiatric exam: Present: normal affect, normal mood - Skin Skin exam: Present: dry, intact, normal color, warm Results - Labs CBC & Chem 7: 12/25/16 10:01 12/25/16 10:01 Labs: Last Result Calcium 7.4 mg/dL (8.6-10.8) L 12/25/16 10:01 Troponin I 0.02 ng/mL (0-0.03) 12/25/16 02:03 Entire Visit Hgb 7.6 g/dL (12.9-16.9) L 12/25/16 10:01 Hct 22.1 % (37.5-50.1) L 12/25/16 10:01 PT 12.4 Seconds (9.4-12.1) H 12/25/16 02:03 Total Bilirubin 0.3 mg/dL (0.2-1.2) 12/25/16 02:03 AST 13 Units/L (5-34) 12/25/16 02:03 ALT 13 Units/L (0-55) 12/25/16 02:03 Lipase 49 Units/L (8-78) 12/25/16 02:03 - ABG ABG results: PT/INR, D-dimer PT 12.4 Seconds (9.4-12.1) H 12/25/16 02:03 Consult Discharge Plan - Plan Referrals: [facility] [Outside] <Jesus Ko - Last Filed: 12/25/16 18:12> Date of Encounter: 12/25/16 Time of Encounter: 18:00 - Time Spent With Patient Total time spent is greater than 50% in coordination of care (as documented) at patient's floor/unit and/or counseling patient: GI History of Present Illness - Data of Consult Requesting Physician: Jennyfer Castro MD - Consult Narrative History of present illness: Mr. Delcid is a 71 year old male - Constitutional Vitals: Temp Pulse Resp BP Pulse Ox 98.6 F 60 16 120/82 95 12/25/16 16:54 12/25/16 16:54 12/25/16 16:54 12/25/16 16:54 12/25/16 16:54 Results - Labs CBC & Chem 7: 12/25/16 10:01 12/25/16 10:01 Labs: Last Result Calcium 7.4 mg/dL (8.6-10.8) L 12/25/16 10:01 Iron 131 mcg/dL (65-175) 12/25/16 02:03 % Saturation 59 % (20-55) H 12/25/16 02:03 Transferrin 158 mg/dL (174-364) L 12/25/16 02:03 Ferritin 224 ng/ml (22-275) 12/25/16 02:03 Troponin I 0.02 ng/mL (0-0.03) 12/25/16 02:03 Entire Visit Hgb 7.6 g/dL (12.9-16.9) L 12/25/16 10:01 Hct 22.1 % (37.5-50.1) L 12/25/16 10:01 PT 12.4 Seconds (9.4-12.1) H 12/25/16 02:03 Ferritin 224 ng/ml (22-275) 12/25/16 02:03 Total Bilirubin 0.3 mg/dL (0.2-1.2) 12/25/16 02:03 AST 13 Units/L (5-34) 12/25/16 02:03 ALT 13 Units/L (0-55) 12/25/16 02:03 Lipase 49 Units/L (8-78) 12/25/16 02:03 - ABG ABG results: PT/INR, D-dimer PT 12.4 Seconds (9.4-12.1) H 12/25/16 02:03 - Impressions Impressions GI Bleed Scan Nuclear Medicine 12/25/16 09:18 IMPRESSION: No evidence of active GI bleeding during acquisition. RECOMMENDATIONS: If the patient shows hemodynamic signs of an active bleed in the next 20 hours, additional images can be acquired. D/ / 12/25/2016 13:08:34 Ammon Fong MD / haseeb Interpreting Provider: Ammon Fong MD - Attending Attestation I examined this patient and my medical decision-making was reviewed with the CLOTH BOLT BANDER/PA/Advanced Practice Nurse/Resident Physician. I agree with the documented findings, disposition and treatment plan as described except to the extent set forth below. Patient initial bleeding scan is negative we will request additional scanning as he just had a bloody bowel movement. Also prep him for possible colon tomorrow
[2016-12-25] MEDS ORDERED: 0.9 % Sodium Chloride 500 ML ONE (13:55)
--- NOTE | 2016-12-25 15:06 | Internal Med Progress Note ---
Date of Encounter: 12/25/16 Time of Encounter: 15:04 - Assessment and plan (1) Lactic acidosis Current Visit: Yes Status: Resolved Assessment and plan: likely related to anemia and GI bleed. Improved with IV hydration. (2) Lower gastrointestinal hemorrhage Current Visit: Yes Status: Acute Assessment and plan: recurrent bleed, likely diverticular. Underwent colonoscopy last week showing diffuse diverticulosis. GI consult noted- recommend nuclear medicine bleeding scan, which was done and does not show any active focus of bleeding at the time of study. Continue to follow clinically and if continues to have rectal bleed along with drop in Hb, may consider repeat colonoscopy along with EGD; (3) Acute blood loss anemia Current Visit: Yes Status: Acute Assessment and plan: noted to have further drop in Hb since admission. Receiving 2nd unit of PRBC since this admission; Continue to monitor Hb closely; (4) Diverticulosis Current Visit: Yes Status: Chronic Qualifiers: Diverticulosis site: diverticulosis of large intestine Diverticulosis bleeding: diverticulosis with bleeding Qualified Code(s): K57.31 - Diverticulosis of large intestine without perforation or abscess with bleeding (5) Hypertension Current Visit: Yes Status: Chronic Qualifiers: Qualified Code(s): I10 - Essential (primary) hypertension - Subjective Interval history: Feels better. No abdominal pain, nausea, vomiting. Continues to have bloody BMs ; underwent nuclear bleeding scan today; - Constitutional Vitals: Temp Pulse Resp BP Pulse Ox 98.3 F 71 16 136/91 95 12/25/16 14:03 12/25/16 14:03 12/25/16 14:03 12/25/16 14:03 12/25/16 14:03 General appearance: Present: A&O X 3, answers questions appropriately - Respiratory Respiratory exam: Present: CTAB. Absent: accessory muscle use, rales, rhonchi, wheezes - Cardiovascular Cardiovascular exam: Present: RRR, +S1, +S2. Absent: diastolic murmur, gallop, rubs, systolic murmur - GI/Abdominal GI/Abdominal exam: Present: normal bowel sounds, soft, no peritoneal signs. Absent: distended, tenderness - Extremities Exam Extremities exam: Present: warm, radial pulses palpable and symetrical. Absent : calf tenderness, cyanotic, pedal edema - Neurological Exam Neurological exam: Present: CN II-XII intact, oriented X3, no focal deficits. Absent: pronater drift, facial droop, speech deficit Internal Medicine: Result - Labs CBC & Chem 7: 12/25/16 10:01 12/25/16 10:01 Labs: Short CBC 12/25/16 Range/Units 10:01 WBC 6.8 (4.3-11.1) K/mcL Hgb 7.6 L (12.9-16.9) g/dL Hct 22.1 L (37.5-50.1) % Plt Count 248 (140-400) K/mcL Neutrophils # 4.0 (1.6-8.9) K/mcL BMP 12/25/16 10:01 Sodium 139 Potassium 4.0 Chloride 112 H Carbon Dioxide 21 BUN 13 Creatinine 0.75 Glucose 105 H Calcium 7.4 L - ABG Interpretation ABG results: PT/INR, D-dimer PT 12.4 Seconds (9.4-12.1) H 12/25/16 02:03 - Impressions Impressions GI Bleed Scan Nuclear Medicine 12/25/16 09:18 IMPRESSION: No evidence of active GI bleeding during acquisition. RECOMMENDATIONS: If the patient shows hemodynamic signs of an active bleed in the next 20 hours, additional images can be acquired. D/ / 12/25/2016 13:08:34 Ammon Fong MD / haseeb Interpreting Provider: Ammon Fong MD Consult Discharge Plan - Plan Referrals: [facility] [Outside]
[2016-12-25 16:01] LABS: % Iron Saturation 59 % (20-55); Iron 131 mcg/dL (65-175); Transferrin 158 mg/dL (174-364)
[2016-12-25 16:24] LABS: Ferritin 224 ng/ml (22-275)
--- NOTE | 2016-12-25 16:38 | Electrocardiograph Report ---
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
[2016-12-25] MEDS ORDERED: Polyethylene Glycol 3350 255 GM POWDER PO ONE (20:00)
[2016-12-25 21:23] LABS: Basophils % 0.4 %; Eosinophils # 0.2 K/mcL (0.0-0.6); Eosinophils % 2.4 %; Hematocrit 24.8 % (37.5-50.1); Hemoglobin 8.5 g/dL (12.9-16.9); Immature Granulocytes % 2.3 % (0-4); Lymphocytes % 24.3 %; Mean Corpuscular HGB Conc 34.3 g/dL (31.6-35.5); Mean Corpuscular Volume 90.5 fL (83.0-100.0); Mean Platelet Volume 9.7 fL (9.4-12.4); Monocytes # 0.6 K/mcL (0.0-1.3); Monocytes % 7.7 %; Neutrophils # 5.3 K/mcL (1.6-8.9); Platelet Count 270 K/mcL (140-400); Red Blood Count 2.74 M/mcL (4.19-5.50); Segmented Neutrophils % 62.9 %
[2016-12-26 06:07] LABS: Basophils % 0.4 %; Eosinophils # 0.2 K/mcL (0.0-0.6); Eosinophils % 2.1 %; Hematocrit 23.5 % (37.5-50.1); Hemoglobin 8.2 g/dL (12.9-16.9); Immature Granulocytes % 1.4 % (0-4); Lymphocytes # 1.7 K/mcL (0.6-4.6); Lymphocytes % 19.4 %; Mean Corpuscular HGB Conc 34.9 g/dL (31.6-35.5); Mean Corpuscular Hemoglobin 31.8 pg (28.0-33.3); Mean Corpuscular Volume 91.1 fL (83.0-100.0); Mean Platelet Volume 10.3 fL (9.4-12.4); Monocytes # 0.6 K/mcL (0.0-1.3); Monocytes % 6.9 %; Neutrophils # 5.9 K/mcL (1.6-8.9); Platelet Count 271 K/mcL (140-400); Red Blood Count 2.58 M/mcL (4.19-5.50); Red Cell Distribution Width 14.3 % (11.5-14.5); Segmented Neutrophils % 69.8 %
[2016-12-26] MEDS: Pantoprazole 40 MG VIAL IVP SCH (07:54)
[2016-12-26] MEDS: Lisinopril 20 MG TABLET PO SCH (07:54)
[2016-12-26] MEDS ORDERED: Lidocaine -MPF 2% 5 ML VIAL INFILT ONE (08:18)
[2016-12-26] MEDS ORDERED: *HR* Propofol 200 MG/20 ML VIAL IVP ONE (08:18)
--- NOTE | 2016-12-26 12:51 | Anesthesia Evaluation PreOp ---
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: Denies Any Significant HX Other Medical History: Bleeding (anemia r/t lower GI hemorrhage) Anesthesia History: No Prior Anesthetic Complications Alcohol Use: none Drug use: marijuana Medications and Allergies Lisinopril [Zestril] 20 mg PO DAILY 12/19/16 [History] Allergies acetaminophen [From Tylenol-Codeine #3] Allergy (Verified 12/25/16 07:21) Itching codeine [From Tylenol-Codeine #3] Allergy (Verified 12/25/16 07:21) Itching doxycycline Allergy (Verified 12/25/16 07:21) Rash tree and shrub pollen Allergy (Verified 12/25/16 07:21) Itching - Meds/Allergy Pre-op Review Medications Reviewed: Yes Allergies Reviewed: Yes Beta Blockers on Current Med List: No Anesthesia Results - Labs 12/26/16 05:31 12/25/16 10:01 Laboratory Tests 12/25/16 12/25/16 12/26/16 02:03 10:01 05:31 Hgb 8.2 L Hct 23.5 L INR 1.1 APTT 28.5 Sodium 139 Potassium 4.0 Creatinine 0.75 Glucose 105 H - Imaging EKG: report reviewed, image reviewed Anesthesia Exam Vital Signs/O2 Sat, Most Current Temp Pulse Resp BP Pulse Ox 99.2 F 61 16 140/64 95 12/26/16 12:52 12/26/16 12:52 12/26/16 12:52 12/26/16 12:52 12/26/16 12:52 Height: 1.83m Weight: 82kg NPO (# of Hours): 8 Pain Scale: 0 Pain Scale Used: Numeric (1 - 10) - HEENT Pupil (Motor): Pupils equal Mallampati: II Teeth: Poor dentition (multiple chipped / missing teeth) Oral Opening: Greater than 3 - LENS AND FRAMES PRESCRIPTION CLERK LOC: Oriented - Cardiac Rhythm: Regular Murmur: None JVD: No Carotid Bruit: No - Pulmonary Breath Sounds: bilateral Clear Anesthesia Assess/Plan ASA Score: 2 Modified [place] Scale for Level of Consciousness: Cooperative, oriented, and tranquil Anesthetic Plan: MAC Monitoring Plan: Standard Monitors Recovery Plan: Other
[2016-12-26] MEDS ORDERED: 0.9 % Sodium Chloride 1,000 ML IVC SCH ×2 (13:00→13:15)
--- NOTE | 2016-12-26 15:24 | Internal Med Progress Note ---
Date of Encounter: 12/26/16 Time of Encounter: 12:00 - Assessment and plan (1) Lactic acidosis Current Visit: Yes Status: Resolved (2) Lower gastrointestinal hemorrhage Current Visit: Yes Status: Acute Assessment and plan: recurrent bleed, likely diverticular. Underwent colonoscopy last week showing diffuse diverticulosis. GI consult noted- recommend nuclear medicine bleeding scan, which was done and does not show any active focus of bleeding at the time of study. Underwent colonoscopy today, which shows diverticulosis with old blood clots and no active bleeding; case d/w GI and plan for EGD in am; resume diet as tolerated and continue to monitor for further bleeding episodes. (3) Acute blood loss anemia Current Visit: Yes Status: Acute Assessment and plan: noted to have slight drop in Hb; received 2units PRBC during this admission; monitor Hb; (4) Diverticulosis Current Visit: Yes Status: Chronic Qualifiers: Diverticulosis site: diverticulosis of large intestine Diverticulosis bleeding: diverticulosis with bleeding Qualified Code(s): K57.31 - Diverticulosis of large intestine without perforation or abscess with bleeding (5) Hypertension Current Visit: Yes Status: Chronic Qualifiers: Qualified Code(s): I10 - Essential (primary) hypertension - Subjective Interval history: Patient noted to be frustrated as he has undergone several studies which show no source of bleeding; reports continued episodes of rectal bleeding, unwitnessed by nursing staff; no nausea, vomiting, abdominal pain; awaiting colonoscopy today; - Constitutional Vitals: Temp Pulse Resp BP Pulse Ox 99.2 F 62 16 131/83 97 12/26/16 12:52 12/26/16 13:55 12/26/16 13:55 12/26/16 13:55 12/26/16 13:55 General appearance: Present: A&O X 3, answers questions appropriately - Respiratory Respiratory exam: Present: CTAB. Absent: accessory muscle use, rales, rhonchi, wheezes - Cardiovascular Cardiovascular exam: Present: RRR, +S1, +S2. Absent: diastolic murmur, gallop, rubs, systolic murmur - GI/Abdominal GI/Abdominal exam: Present: normal bowel sounds, soft, no peritoneal signs. Absent: distended, tenderness Internal Medicine: Result - Labs CBC & Chem 7: 12/26/16 05:31 12/25/16 10:01 - ABG Interpretation ABG results: PT/INR, D-dimer PT 12.4 Seconds (9.4-12.1) H 12/25/16 02:03 Consult Discharge Plan - Plan Referrals: [facility] [Outside] - 01/03/17 3:30 pm
--- NOTE | 2016-12-26 15:48 | Anesthesia Evaluation Post Op ---
Date of Encounter: 12/26/16 Time of Encounter: 15:47 - Vital Signs Vital Signs: VSS - Lungs Lungs: Clear Ascult./Percussion - Airway Airway: Non-obstructed - Cardiovascular Regular Rate - Mental Status Mental Status: Alert & Oriented, Answers Appropriately - Pain Pain Scale: 0 Pain Scale used: Numeric (1 - 10) - Nausea Vomiting Nausea Vomiting: Not Present - Hydration Hydration: NPO - Discharge PostOp Status: Transfer Patient to floor
[2016-12-27 05:28] LABS: Basophils % 0.3 %; Eosinophils # 0.2 K/mcL (0.0-0.6); Eosinophils % 3.6 %; Hematocrit 23.2 % (37.5-50.1); Hemoglobin 7.9 g/dL (12.9-16.9); Immature Granulocytes % 0.8 % (0-4); Lymphocytes # 1.9 K/mcL (0.6-4.6); Lymphocytes % 31.6 %; Mean Corpuscular HGB Conc 34.1 g/dL (31.6-35.5); Mean Corpuscular Hemoglobin 31.7 pg (28.0-33.3); Mean Corpuscular Volume 93.2 fL (83.0-100.0); Mean Platelet Volume 10.3 fL (9.4-12.4); Monocytes # 0.5 K/mcL (0.0-1.3); Monocytes % 8.1 %; Neutrophils # 3.4 K/mcL (1.6-8.9); Platelet Count 283 K/mcL (140-400); Red Blood Count 2.49 M/mcL (4.19-5.50); Red Cell Distribution Width 14.6 % (11.5-14.5); Segmented Neutrophils % 55.6 %
[2016-12-27] MEDS: Lisinopril 20 MG TABLET PO SCH (08:32)
[2016-12-27] MEDS: Pantoprazole 40 MG VIAL IVP SCH (08:32)
--- NOTE | 2016-12-27 13:13 | Internal Med Progress Note ---
Date of Encounter: 12/27/16 Time of Encounter: 12:10 - Assessment and plan (1) Lactic acidosis Current Visit: Yes Status: Resolved (2) Lower gastrointestinal hemorrhage Current Visit: Yes Status: Acute Assessment and plan: recurrent bleed, likely diverticular. Rectal bleeding currently controlled. Underwent colonoscopy last week showing diffuse diverticulosis. GI consult noted - recommend nuclear medicine bleeding scan, which was done and does not show any active focus of bleeding at the time of study. Underwent colonoscopy on , which shows diverticulosis with old blood clots and no active bleeding; plan for possible EGD today. Start Metamucil for high fiber diet. (3) Acute blood loss anemia Current Visit: Yes Status: Acute Assessment and plan: received 2units PRBC during this admission; continues to have drop in hemoglobin. We will transfuse 2 units PRBC today, monitor hemoglobin closely. (4) Diverticulosis Current Visit: Yes Status: Chronic Qualifiers: Diverticulosis site: diverticulosis of large intestine Diverticulosis bleeding: diverticulosis with bleeding Qualified Code(s): K57.31 - Diverticulosis of large intestine without perforation or abscess with bleeding (5) Hypertension Current Visit: Yes Status: Chronic Qualifiers: Hypertension type: essential hypertension Qualified Code(s): I10 - Essential (primary) hypertension - Subjective Interval history: Feeling better today. No bowel movements/hematochezia today. Awaiting EGD; no abdominal pain, nausea or vomiting; explained Colonoscopy results and diverticular bleed physiology; - Constitutional Vitals: Temp Pulse Resp BP Pulse Ox 97.6 F 69 18 139/89 95 12/27/16 12:14 12/27/16 12:14 12/27/16 12:14 12/27/16 12:14 12/27/16 12:14 General appearance: Present: A&O X 3, answers questions appropriately - Respiratory Respiratory exam: Present: CTAB. Absent: accessory muscle use, rales, rhonchi, wheezes - Cardiovascular Cardiovascular exam: Present: RRR, +S1, +S2. Absent: diastolic murmur, gallop, rubs, systolic murmur - GI/Abdominal GI/Abdominal exam: Present: normal bowel sounds, soft, no peritoneal signs. Absent: distended, tenderness - Extremities Exam Extremities exam: Present: warm, radial pulses palpable and symetrical. Absent : calf tenderness, cyanotic, pedal edema - Neurological Exam Neurological exam: Present: CN II-XII intact, oriented X3, no focal deficits. Absent: pronater drift, facial droop, speech deficit Internal Medicine: Result - Labs CBC & Chem 7: 12/27/16 04:25 12/25/16 10:01 Labs: Short CBC 12/27/16 Range/Units 04:25 WBC 6.1 (4.3-11.1) K/mcL Hgb 7.9 L (12.9-16.9) g/dL Hct 23.2 L (37.5-50.1) % Plt Count 283 (140-400) K/mcL Neutrophils # 3.4 (1.6-8.9) K/mcL - ABG Interpretation ABG results: PT/INR, D-dimer PT 12.4 Seconds (9.4-12.1) H 12/25/16 02:03 Consult Discharge Plan - Plan Referrals: [facility] [Outside] - 01/03/17 3:30 pm
[2016-12-27] MEDS: Psyllium 1 PACKET POWD.PACK PO SCH ×2 (15:21→20:40)
[2016-12-27] MEDS ORDERED: *HR* Midazolam HCl 5 MG/5 ML VIAL IVP ONE (17:18)
[2016-12-27] MEDS ORDERED: *HR* FentaNYL (PF) 100 MCG/2 ML VIAL ONE ×2 (17:19→18:02)
[2016-12-27] MEDS ORDERED: 0.9 % Sodium Chloride 1,000 ML IVC SCH (17:45)
[2016-12-27] MEDS: *HR* FentaNYL (PF) 100 MCG/2 ML VIAL IVP PRN ×3 (17:57→18:02)
[2016-12-27] MEDS: *HR* Midazolam HCl 5 MG/5 ML VIAL IVP PRN ×3 (17:57→18:02)
--- NOTE | 2016-12-27 17:58 | Pre-Sedation Evaluation ---
Pre-sedation evaluation - Pre-sedation checklist Date of procedure: 12/27/16 Procedure: egd Recent Vitals: Last Vital Signs Temp 98.7 F 12/27/16 17:29 Pulse 76 12/27/16 17:57 Resp 18 12/27/16 17:57 BP 148/84 12/27/16 17:57 Pulse Ox 98 12/27/16 17:57 H&P (including ROS) documented in medical record: Yes Previous reaction to sedatives/anesthetics: No Dietary Status: NPO 6 hours prior to procedure Dentition: No loose teeth or bridges ASA Classification *see protocol: CLASS III-Severe systemic disease Plan of Care: Pt appropriate candidate for procedure/moderate/conscious sedation , Risks/benefits of procedure/sedation discussed w/ patient/family
[2016-12-27] MEDS ORDERED: Tetracaine/Benzocaine/Butamben 200MG/SPRAY (100SPY/BOT) MM ONE (17:59)
[2016-12-27] MEDS ORDERED: 0.9 % Sodium Chloride 250 ML ONE (22:13)
[2016-12-28] MEDS ORDERED: 0.9 % Sodium Chloride 250 ML ONE (02:46)
[2016-12-28 08:04] LABS: Basophils % 0.5 %; Eosinophils # 0.2 K/mcL (0.0-0.6); Eosinophils % 3.4 %; Hematocrit 29.8 % (37.5-50.1); Hemoglobin 10.5 g/dL (12.9-16.9); Immature Granulocytes % 0.6 % (0-4); Lymphocytes % 32.5 %; Mean Corpuscular HGB Conc 35.2 g/dL (31.6-35.5); Mean Corpuscular Hemoglobin 31.3 pg (28.0-33.3); Mean Corpuscular Volume 88.7 fL (83.0-100.0); Mean Platelet Volume 9.4 fL (9.4-12.4); Monocytes # 0.5 K/mcL (0.0-1.3); Monocytes % 8.4 %; Neutrophils # 3.4 K/mcL (1.6-8.9); Platelet Count 303 K/mcL (140-400); Red Blood Count 3.36 M/mcL (4.19-5.50); Red Cell Distribution Width 14.7 % (11.5-14.5); Segmented Neutrophils % 54.6 %
[2016-12-28] MEDS: Pantoprazole 40 MG VIAL IVP SCH (09:12)
[2016-12-28] MEDS: Lisinopril 20 MG TABLET PO SCH (09:12)
[2016-12-28] MEDS: Psyllium 1 PACKET POWD.PACK PO SCH ×3 (09:13→21:53)
--- NOTE | 2016-12-28 17:17 | Internal Med Progress Note ---
Date of Encounter: 12/28/16 Time of Encounter: 11:00 - Assessment and plan (1) Lactic acidosis Status: Resolved (2) Lower gastrointestinal hemorrhage Status: Acute Assessment and plan: recurrent bleed, likely diverticular. Rectal bleeding currently controlled. GI consult noted- recommend nuclear medicine bleeding scan, which was done and does not show any active focus of bleeding at the time of study. Underwent colonoscopy on 12/26, which shows diverticulosis with old blood clots and no active bleeding; EGD completed and showed no active bleeding, only hiatal hernia. Continue Metamucil for high fiber diet. Resume solid diet; d/w GI about further plans; Hb stable today; (3) Acute blood loss anemia Status: Acute Assessment and plan: received 4 units PRBC during this admission; Hb is currently stable; (4) Diverticulosis Status: Chronic Qualifiers: Diverticulosis site: diverticulosis of large intestine Diverticulosis bleeding: diverticulosis with bleeding Qualified Code(s): K57.31 - Diverticulosis of large intestine without perforation or abscess with bleeding (5) Hypertension Status: Chronic Qualifiers: Hypertension type: essential hypertension Qualified Code(s): I10 - Essential (primary) hypertension - Subjective Interval history: On clear liquid diet, no bowel movement since yesterday. No hematochezia. Patient is very irritable about being on liquid diet and has been refusing to eat and demands solid diet. No abdominal pain. - Constitutional Vitals: Temp Pulse Resp BP Pulse Ox 97.4 F L 62 15 134/99 98 12/28/16 16:04 12/28/16 16:04 12/28/16 16:04 12/28/16 16:04 12/28/16 16:04 General appearance: Present: A&O X 3, answers questions appropriately - Respiratory Respiratory exam: Present: CTAB. Absent: accessory muscle use, rales, rhonchi, wheezes - Cardiovascular Cardiovascular exam: Present: RRR, +S1, +S2. Absent: diastolic murmur, gallop, rubs, systolic murmur - GI/Abdominal GI/Abdominal exam: Present: normal bowel sounds, soft, no peritoneal signs. Absent: distended, tenderness Internal Medicine: Result - Labs CBC & Chem 7: 12/29/16 05:16 12/25/16 10:01 Labs: Short CBC 12/28/16 Range/Units 07:56 WBC 6.2 (4.3-11.1) K/mcL Hgb 10.5 L D (12.9-16.9) g/dL Hct 29.8 L (37.5-50.1) % Plt Count 303 (140-400) K/mcL Neutrophils # 3.4 (1.6-8.9) K/mcL - ABG Interpretation ABG results: PT/INR, D-dimer PT 12.4 Seconds (9.4-12.1) H 12/25/16 02:03 Consult Discharge Plan - Plan Instructions: Laxative, Bulk-forming (By mouth), Omeprazole (By mouth), Diverticulitis (DC), Chronic Hypertension (DC), Anemia (GEN) Referrals: [facility] [Outside] - 01/03/17 3:30 pm Prescriptions: Omeprazole [PriLOSEC] 20 mg PO DAILY #30 cap Psyllium [Metamucil Fiber Singles Packet] 1 packet PO TID #60 powd.pack
[2016-12-29 05:59] LABS: Basophils % 0.7 %; Eosinophils # 0.3 K/mcL (0.0-0.6); Eosinophils % 4.2 %; Hematocrit 32.6 % (37.5-50.1); Hemoglobin 11.1 g/dL (12.9-16.9); Immature Granulocytes % 0.8 % (0-4); Lymphocytes # 1.4 K/mcL (0.6-4.6); Lymphocytes % 23.5 %; Mean Corpuscular Hemoglobin 30.7 pg (28.0-33.3); Mean Corpuscular Volume 90.3 fL (83.0-100.0); Mean Platelet Volume 9.5 fL (9.4-12.4); Monocytes # 0.6 K/mcL (0.0-1.3); Monocytes % 9.2 %; Neutrophils # 3.7 K/mcL (1.6-8.9); Nucleated Red Blood Cells 0.3 /100 WBC (0); Platelet Count 344 K/mcL (140-400); Red Blood Count 3.61 M/mcL (4.19-5.50); Red Cell Distribution Width 14.8 % (11.5-14.5); Segmented Neutrophils % 61.6 %
[2016-12-29 07:43] VITALS: BP 136/91
[2016-12-29] MEDS: Pantoprazole 40 MG VIAL IVP SCH (09:30)
[2016-12-29] MEDS: Lisinopril 20 MG TABLET PO SCH (11:32)
[2016-12-29] MEDS: Psyllium 1 PACKET POWD.PACK PO SCH (11:36)
--- NOTE | 2016-12-29 11:36 | Discharge Summary ---
Date of Encounter: 12/29/16 Time of Encounter: 11:34 - Discharge Diagnosis (1) Lactic acidosis Priority: Primary Status: Resolved (2) Lower gastrointestinal hemorrhage Priority: Primary Status: Acute (3) Acute blood loss anemia Priority: Primary Status: Acute (4) Diverticulosis Priority: Secondary Status: Chronic Qualifiers: Diverticulosis site: diverticulosis of large intestine Diverticulosis bleeding: diverticulosis with bleeding Qualified Code(s): K57.31 - Diverticulosis of large intestine without perforation or abscess with bleeding (5) Hypertension Priority: Secondary Status: Chronic Qualifiers: Hypertension type: essential hypertension Qualified Code(s): I10 - Essential (primary) hypertension - Discharge Medications Prescriptions: Omeprazole [PriLOSEC] 20 mg PO DAILY #30 cap Psyllium [Metamucil Fiber Singles Packet] 1 packet PO TID #60 powd.pack Home Medications: Lisinopril [Zestril] 20 mg PO DAILY 12/19/16 [History] Omeprazole [PriLOSEC] 20 mg PO DAILY #30 cap 12/29/16 [Rx] Psyllium [Metamucil Fiber Singles Packet] 1 packet PO TID #60 powd.pack [Rx] Allergies/Adverse Reactions: Allergies acetaminophen [From Tylenol-Codeine #3] Allergy (Verified 12/25/16 07:21) Itching codeine [From Tylenol-Codeine #3] Allergy (Verified 12/25/16 07:21) Itching doxycycline Allergy (Verified 12/25/16 07:21) Rash tree and shrub pollen Allergy (Verified 12/25/16 07:21) Itching Date of admission: 12/26/16 08:55 Primary care physician: PCP [place] Discharging clinician: Jennyfer Castro Anticipated date of discharge: 12/29/16 - Patient Status Disposition: Home, Self-Care Condition: Good Functional capacity at discharge: independent ambulation Overall status at discharge: patient is back to baseline - Discharge Instructions Instructions: Laxative, Bulk-forming (By mouth), Omeprazole (By mouth), Diverticulitis (DC), Chronic Hypertension (DC), Anemia (GEN) Follow Up With: [facility] [Outside] - 01/03/17 3:30 pm - Diet and Activity Activity: resume usual activities as tolerated Diet: low fat, low cholesterol (high fiber diet), low salt diet Hospital course: Mr. Delcid is a 71 year old male admitted with rectal bleeding. Patient was recently admitted for similar complaints and underwent colonoscopy that showed diffuse diverticulosis. Patient was kept NPO with IV hydration and GI was consulted. He underwent nuclear bleeding scan which showed no focus of active bleeding. He underwent Colonoscopy and found to have diverticulosis with old blood clots but no active bleeding. He continued to have GI bleed for 2-3 days after admission with drop in Hb and he received 4units PRBC during this admission. He also underwent EGD that showed hiatal hernia with no e/o- active bleeding or ulcers. His bleeding is currently stopped and Hb remains stable around 10. He is able to tolerate diet and is medically stable for discharge with recommendations to continue high fiber and low fat diet. - Time Spent with Patient Total time spent providing and/or coordinating discharge services: Greater than 30 minutes (45 min) - Constitutional Vitals: Temp Pulse Resp BP Pulse Ox 98.1 F 58 15 136/91 97 12/29/16 07:40 12/29/16 07:40 12/29/16 07:40 12/29/16 07:40 12/29/16 07:40 General appearance: Present: A&O X 3, answers questions appropriately - GI/Abdominal GI/Abdominal exam: Present: normal bowel sounds, soft, no peritoneal signs. Absent: distended, tenderness
== END 2016-12-29 12:50 | disposition home or self-care (01) | DRG 378 ==
LOC: 2NENU 01:35 → EMEROO 01:35 → 2NENU 03:15
PROVIDERS: ADMIT Internal Medicine; ATTEND Internal Medicine

== ENCOUNTER 2018-04-05 13:49 | Observation (INO) ==
--- NOTE | 2018-04-05 14:04 | Emergency Department Note ---
Disposition Clinical Impression: Hematochezia Diverticulosis Qualifiers: Diverticulosis site: diverticulosis of large intestine Diverticulosis bleeding : diverticulosis with bleeding Qualified Code(s): K57.31 - Diverticulosis of large intestine without perforation or abscess with bleeding Disposition: Admitted As Inpatient Condition: Fair Time of Disposition: 17:57 General Adult HPI - General Chief complaint: ED Abdominal Pain Stated complaint: Rectal Bleed Time Seen by Provider: 04/05/18 13:59 Source: patient Mode of arrival: ambulatory Limitations: no limitations Nursing Notes Reviewed: Yes Vital Signs Reviewed: Yes - History of Present Illness HPI Narrative: Patient is a 73-year-old male with a past medical history of diverticulitis presents for evaluation of blood in stool. The patient states that his symptoms started 4 days ago he had a bowel movement which she noticed there is a streak of bright red blood mixed in with the stool. The patient states that he has a history of chronic diarrhea, however he has been going more than normal lately. States she is also had diffuse abdominal pain for the past 2 days that has been intermittent and mild. Denies any fevers, chills, chest pain , back pain, nausea, vomiting, testicular pain, or rash. No recent antibiotic use. Last colonoscopy was a year ago and showed diverticulosis. Pain Scale: 5 - Related Data Home Medications Medication Instructions Recorded Confirmed Lisinopril [Zestril] 20 mg PO DAILY 12/19/16 04/05/18 Previous Rx's Medication Instructions Recorded Omeprazole [PriLOSEC] 20 mg PO DAILY #30 cap 12/29/16 Psyllium [Metamucil Fiber Singles 1 packet PO TID #60 powd.pack 12/29/16 Packet] Allergies Allergy/AdvReac Type Severity Reaction Status Date / Time acetaminophen Allergy Itching Verified 04/05/18 16:59 [From Tylenol-Codeine #3] codeine Allergy Itching Verified 04/05/18 16:59 [From Tylenol-Codeine #3] doxycycline Allergy Rash Verified 04/05/18 16:59 tree and shrub pollen Allergy Itching Verified 04/05/18 16:59 All systems ED: reviewed and negative except as stated. Review of Systems: As Per HPI Constitutional: Denies: fever, chills Cardiovascular: Denies: chest pain, palpitations, dyspnea on exertion Gastrointestinal: Reports: abdominal pain (3/10), hematochezia. Denies: nausea , vomiting Musculoskeletal: Denies: back pain, neck pain Integumentary: Denies: rash Past Medical History - Past Medical History Attestation: Yes The following information was validated with the patient. Medical history: Reports: hypertension, other Surgical history: Reports: other (recent colonoscopy) Psychiatric history: Reports: no psych history - Social History Smoking Status: Never smoker Smokeless Tobacco Status: No Alcohol use: Reports: none Drug use: Reports: marijuana Physical Exam - General Limitations: no limitations General appearance: alert, in no apparent distress - Head Head exam: atraumatic, normocephalic, normal inspection - Eye Eye exam: Present: normal appearance, PERRL - ENT ENT exam: normal exam, normal oropharynx, mucous membranes moist - Chest Chest inspection: Present: normal inspection, symmetric chest wall rise - Respiratory Respiratory exam: Present: normal lung sounds bilaterally. Absent: respiratory distress, wheezes - Cardiovascular Cardiovascular exam: Present: regular rate, normal rhythm, normal heart sounds, +S1, +S2 - Abdominal Exam Abdominal exam: Present: soft, Non-Tender, normal bowel sounds. Absent: tenderness, distention, guarding, rebound - Rectal Exam Rectal exam: Present: normal rectal tone, heme (+) stool, black stool. Absent: hemorrhoids, mass, tenderness - Extremities Exam Extremities exam: Present: normal inspection, full ROM, normal capillary refill. Absent: tenderness, calf tenderness - Back Exam Back exam: Present: normal inspection - Neurological Exam Neurological exam: Present: alert, oriented X3 - Psychiatric Psychiatric exam: Present: normal affect, normal mood - Skin Skin exam: Present: warm, dry, intact, normal color Course Course Narrative: Patient presents for evaluation for lower GI bleed has been going on for 4 days. The patient's physical exam isunremarkable except for dark stool in the rectal wall and positive hemoccult. The patient's CT scanshowed extensive diverticulosis throughout the large bowel without CT evidence of diveiculitis an mild thickening with some lower esophagus raising possibility of esophagitis. The patient's vital signs are stable and his hemoglobin is stable. The patient did have a large bloody bowel movement while in the ED.I discussed the patient's case with the general surgeon on-call Dr. Goel states that he will see the patient. I admitted the patient to Dr. Lion. Vital Signs Temperature 97.7 F 04/05/18 13:50 Pulse Rate 82 04/05/18 13:50 Respiratory Rate 18 04/05/18 13:50 Blood Pressure 147/87 04/05/18 13:50 O2 Sat by Pulse Oximetry 97 04/05/18 13:50 Temperature 97.7 F 04/05/18 14:08 Pulse Rate 63 04/05/18 17:29 Respiratory Rate 18 04/05/18 17:29 Blood Pressure 118/87 04/05/18 17:29 O2 Sat by Pulse Oximetry 98 04/05/18 17:29 Oxygen Delivery Oxygen Delivery Room Air Medical Decision Making - Medical Records Medical records reviewed: Yes I reviewed the patient's medical records. - Lab Data Lab results reviewed: Yes I reviewed the patient's lab results. Result diagrams: 04/05/18 14:33 04/05/18 14:33 Lab Results 04/05/18 04/05/18 04/05/18 Range/Units 14:26 14:33 14:33 WBC 7.8 (4.3-11.1) K/mcL RBC 5.01 (4.19-5.50) M/mcL Hgb 15.9 (12.9-16.9) g/dL Hct 45.4 (37.5-50.1) % MCV 90.6 (83.0-100.0) fL MCH 31.7 (28.0-33.3) pg MCHC 35.0 (31.6-35.5) g/dL RDW 12.2 (11.5-14.5) % Plt Count 228 (140-400) K/mcL MPV 10.0 (9.4-12.4) fL Immature Gran % 0.3 (0-4) % Seg Neutrophils % 62.8 % Lymphocytes % 28.0 % Monocytes % 7.0 % Eosinophils % 1.3 % Basophils % 0.6 % Neutrophils # 4.9 (1.6-8.9) K/mcL Lymphocytes # 2.2 (0.6-4.6) K/mcL Monocytes # 0.6 (0.0-1.3) K/mcL Eosinophils # 0.1 (0.0-0.6) K/mcL Basophils # 0.1 (0.0-0.2) K/mcL Sodium 137 (136-145) mEq/L Potassium 4.3 (3.5-5.1) mEq/L Chloride 110 H (98-107) mEq/L Carbon Dioxide 20 L (23-29) mEq/L BUN 23 (8-23) mg/dL Creatinine 1.03 (0.70-1.30) mg/dL Est GFR ( Amer) > 60 (> 60) Est GFR (Non-Af Amer) > 60 (> 60) BUN/Creatinine Ratio 22 (6-26) Glucose 111 H (70-105) mg/dL Calculated Osmolality 288 (280-300) Calcium 9.4 (8.6-10.3) mg/dL Total Bilirubin 0.8 (0.3-1.0) mg/dL Direct Bilirubin 0.2 (0.0-0.2) mg/dL Indirect Bilirubin 0.6 (0.0-1.2) mg/dL AST 17 (13-39) Units/L ALT 14 (7-52) Units/L Alkaline Phosphatase 51 (34-104) Units/L Troponin I < 0.03 (< 0.04) ng/mL Serum Total Protein 7.1 (6.4-8.9) g/dL Albumin 4.2 (3.5-5.7) g/dL Globulin 2.9 (2.4-3.5) g/dL Albumin/Globulin Ratio 1.4 (1.1-2.2) Lipase 46 (11-82) Units/L Urine Color Yellow (Yellow) Urine Clarity Clear (Clear) Urine pH 5.5 (5.0-8.0) pH Units Ur Specific [place] 1.025 (1.010-1.025) Urine Protein 30 H (Neg-Trace) mg/dL Urine Glucose (UA) Normal (Normal) mg/dL Urine Ketones 15 H (Negative) mg/dL Urine Blood Negative (Negative) Urine Nitrite Negative (Negative) Urine Bilirubin Moderate H (Negative) Urine Urobilinogen Normal (Normal) mg/dL Ur Leukocyte Esterase Negative (Negative) Urine Microscopic RBC 0-3 (0-3) per hpf Urine Microscopic WBC 0-3 (0-3) per hpf Urine Bacteria Few (None-Few) per hpf Ur Culture Indicated? NO (NO) - Radiology Data Radiology results reviewed: Yes I reviewed the patient's radiology results. Chest X-Ray 04/05/18 14:14 IMPRESSION: No evidence of acute cardiopulmonary disease. D/ / Kevin Abreu MD / Kevin Abreu MD Interpreting Provider: Kevin Abreu MD Abdomen/Pelvis CT 04/05/18 14:19 IMPRESSION: Extensive diverticulosis throughout the large bowel, but without CT evidence diverticulitis. Small hiatal hernia. Mural thickening within lower esophagus, raise the possibility of esophagitis. Correlate clinically. D/ / Cuco Arnold MD / Cuco Arnold MD Interpreting Provider: Cuco Arnold MD
[2018-04-05] MEDS ORDERED: Ketorolac 30 MG/ML VIAL IVP ONE (14:13)
[2018-04-05] MEDS ORDERED: Isovue-370 500 ML INFUS..BTL IV ONE (14:19)
[2018-04-05 14:34] LABS: Bilirubin,Urine Moderate (Negative); Blood,Urine Negative (Negative); Clarity,Urine Clear (Clear); Color,Urine Yellow (Yellow); Glucose,Urine (UA) Normal (Normal); Ketones,Urine 15 mg/dL (Negative); Leukocyte Esterase,Urine Negative (Negative); Nitrite,Urine Negative (Negative); PH,Urine 5.5 pH Units (5.0-8.0); Protein,Urine 30 mg/dL (Neg-Trace); Specific Gravity,Urine 1.025 (1.010-1.025); Urobilinogen,Urine Normal (Normal)
[2018-04-05 14:44] LABS: Bacteria,Urine Few per hpf (None-Few); RBC,Urine 0-3 per hpf (0-3); WBC,Urine 0-3 per hpf (0-3)
[2018-04-05 14:54] LABS: Basophils # 0.1 K/mcL (0.0-0.2); Basophils % 0.6 %; Eosinophils # 0.1 K/mcL (0.0-0.6); Eosinophils % 1.3 %; Hematocrit 45.4 % (37.5-50.1); Hemoglobin 15.9 g/dL (12.9-16.9); Immature Granulocytes % 0.3 % (0-4); Lymphocytes # 2.2 K/mcL (0.6-4.6); Mean Corpuscular Hemoglobin 31.7 pg (28.0-33.3); Mean Corpuscular Volume 90.6 fL (83.0-100.0); Monocytes # 0.6 K/mcL (0.0-1.3); Neutrophils # 4.9 K/mcL (1.6-8.9); Platelet Count 228 K/mcL (140-400); Red Blood Count 5.01 M/mcL (4.19-5.50); Red Cell Distribution Width 12.2 % (11.5-14.5); Segmented Neutrophils % 62.8 %
[2018-04-05 15:19] LABS: Alanine Aminotransferase 14 Units/L (7-52); Albumin 4.2 g/dL (3.5-5.7); Albumin/Globulin Ratio 1.4 (1.1-2.2); Alkaline Phosphatase 51 Units/L (34-104); Aspartate Amino Transferase 17 Units/L (13-39); BUN/Creatinine Ratio 22 (6-26); Bilirubin,Direct 0.2 mg/dL (0.0-0.2); Bilirubin,Indirect 0.6 mg/dL (0.0-1.2); Bilirubin,Total 0.8 mg/dL (0.3-1.0); Blood Urea Nitrogen 23 mg/dL (8-23); Calcium 9.4 mg/dL (8.6-10.3); Carbon Dioxide 20 mEq/L (23-29); Chloride 110 mEq/L (98-107); Globulin 2.9 g/dL (2.4-3.5); Glucose 111 mg/dL (70-105); Lipase 46 Units/L (11-82); Osmolality,Calculated 288 (280-300); Potassium 4.3 mEq/L (3.5-5.1); Sodium 137 mEq/L (136-145); Total Protein 7.1 g/dL (6.4-8.9); Troponin I < 0.03 ng/mL (< 0.04); eGFR For African Americans > 60 (> 60); eGFR For Non-African Americans > 60 (> 60)
--- NOTE | 2018-04-05 17:48 | Emergency Department Note ---
Disposition Clinical Impression: GI bleed Qualifiers: GI bleed type/associated pathology: unspecified gastrointestinal hemorrhage type Qualified Code(s): K92.2 - Gastrointestinal hemorrhage, unspecified Disposition: Home, Self-Care Condition: Fair Instructions: Gastrointestinal Bleeding (ED) [facility] [Primary Care Provider[facility] - Forms: ED Satisfaction Letter, Work/School Release General Adult HPI - General Chief complaint: ED Abdominal Pain Stated complaint: Rectal Bleed Time Seen by Provider: 04/05/18 13:59 Source: patient Mode of arrival: ambulatory Limitations: no limitations Nursing Notes Reviewed: Yes Vital Signs Reviewed: Yes - History of Present Illness Pain Scale: 2 - Related Data Home Medications Medication Instructions Recorded Confirmed Lisinopril [Zestril] 20 mg PO DAILY 12/19/16 04/05/18 Previous Rx's Medication Instructions Recorded Omeprazole [PriLOSEC] 20 mg PO DAILY #30 cap 12/29/16 Psyllium [Metamucil Fiber Singles 1 packet PO TID #60 powd.pack 12/29/16 Packet] Allergies Allergy/AdvReac Type Severity Reaction Status Date / Time acetaminophen Allergy Itching Verified 04/05/18 16:59 [From Tylenol-Codeine #3] codeine Allergy Itching Verified 04/05/18 16:59 [From Tylenol-Codeine #3] doxycycline Allergy Rash Verified 04/05/18 16:59 tree and shrub pollen Allergy Itching Verified 04/05/18 16:59 Past Medical History - Past Medical History Medical history: Reports: hypertension, other Surgical history: Reports: other (recent colonoscopy) Psychiatric history: Reports: no psych history - Social History Smoking Status: Never smoker Smokeless Tobacco Status: No Alcohol use: Reports: none Drug use: Reports: marijuana Physical Exam - General Limitations: no limitations General appearance: alert, in no apparent distress Course Vital Signs Temperature 97.7 F 04/05/18 13:50 Pulse Rate 82 04/05/18 13:50 Respiratory Rate 18 04/05/18 13:50 Blood Pressure 147/87 04/05/18 13:50 O2 Sat by Pulse Oximetry 97 04/05/18 13:50 Temperature 97.7 F 04/05/18 14:08 Pulse Rate 70 04/05/18 16:45 Respiratory Rate 20 04/05/18 16:45 Blood Pressure 133/95 04/05/18 16:45 O2 Sat by Pulse Oximetry 96 04/05/18 16:45 Oxygen Delivery Oxygen Delivery Room Air Medical Decision Making - Lab Data Result diagrams: 04/05/18 14:33 04/05/18 14:33 Lab Results 04/05/18 04/05/18 04/05/18 Range/Units 14:26 14:33 14:33 WBC 7.8 (4.3-11.1) K/mcL RBC 5.01 (4.19-5.50) M/mcL Hgb 15.9 (12.9-16.9) g/dL Hct 45.4 (37.5-50.1) % MCV 90.6 (83.0-100.0) fL MCH 31.7 (28.0-33.3) pg MCHC 35.0 (31.6-35.5) g/dL RDW 12.2 (11.5-14.5) % Plt Count 228 (140-400) K/mcL MPV 10.0 (9.4-12.4) fL Immature Gran % 0.3 (0-4) % Seg Neutrophils % 62.8 % Lymphocytes % 28.0 % Monocytes % 7.0 % Eosinophils % 1.3 % Basophils % 0.6 % Neutrophils # 4.9 (1.6-8.9) K/mcL Lymphocytes # 2.2 (0.6-4.6) K/mcL Monocytes # 0.6 (0.0-1.3) K/mcL Eosinophils # 0.1 (0.0-0.6) K/mcL Basophils # 0.1 (0.0-0.2) K/mcL Sodium 137 (136-145) mEq/L Potassium 4.3 (3.5-5.1) mEq/L Chloride 110 H (98-107) mEq/L Carbon Dioxide 20 L (23-29) mEq/L BUN 23 (8-23) mg/dL Creatinine 1.03 (0.70-1.30) mg/dL Est GFR ( Amer) > 60 (> 60) Est GFR (Non-Af Amer) > 60 (> 60) BUN/Creatinine Ratio 22 (6-26) Glucose 111 H (70-105) mg/dL Calculated Osmolality 288 (280-300) Calcium 9.4 (8.6-10.3) mg/dL Total Bilirubin 0.8 (0.3-1.0) mg/dL Direct Bilirubin 0.2 (0.0-0.2) mg/dL Indirect Bilirubin 0.6 (0.0-1.2) mg/dL AST 17 (13-39) Units/L ALT 14 (7-52) Units/L Alkaline Phosphatase 51 (34-104) Units/L Troponin I < 0.03 (< 0.04) ng/mL Serum Total Protein 7.1 (6.4-8.9) g/dL Albumin 4.2 (3.5-5.7) g/dL Globulin 2.9 (2.4-3.5) g/dL Albumin/Globulin Ratio 1.4 (1.1-2.2) Lipase 46 (11-82) Units/L Urine Color Yellow (Yellow) Urine Clarity Clear (Clear) Urine pH 5.5 (5.0-8.0) pH Units Ur Specific [place] 1.025 (1.010-1.025) Urine Protein 30 H (Neg-Trace) mg/dL Urine Glucose (UA) Normal (Normal) mg/dL Urine Ketones 15 H (Negative) mg/dL Urine Blood Negative (Negative) Urine Nitrite Negative (Negative) Urine Bilirubin Moderate H (Negative) Urine Urobilinogen Normal (Normal) mg/dL Ur Leukocyte Esterase Negative (Negative) Urine Microscopic RBC 0-3 (0-3) per hpf Urine Microscopic WBC 0-3 (0-3) per hpf Urine Bacteria Few (None-Few) per hpf Ur Culture Indicated? NO (NO) Attestation Statement - Attestation Attestation: I, Augustin Baez, examined this patient and my medical decision-making was reviewed with the [employer] SUPERVISOR/PA/Advanced Practice Nurse/Resident Physician. I agree with the documented findings, disposition and treatment plan as described except to the extent set forth below. 73-year-old male presents emergency Department with concerns of hematochezia. Patient states he has a history of diverticulosis with history of transfusion in the past. Patient states he has had bright red blood per rectum over the past 3-4 days. Patient states he waited to presents emergency Department "to see if the symptoms would improve" however he had a worse episode of hematochezia today. Patient was not anemic on initial evaluation. The CT showed diffuse diverticulosis without evidence of diverticulitis. Patient will be admitted to the hospitalist for further care and evaluation.
--- NOTE | 2018-04-05 20:00 | Internal Med History&Physical ---
Date of Encounter: 04/05/18 Time of Encounter: 19:45 Internal Medicine - H&P: HPI Admitted From: Emergency Dept Plans for Post Hospital Care: Home History of present illness: Mr. Delcid is a 73 year old male divertiular bleed, HTN, hematochezia, and acute blood loss anemia. Pt states he initially noted blood in stool on Saturday04/01/2018. States he was hoping it would stop but it got progressively worse. Pt states he had colonoscopy done 1 year ago and he was informed he had diverticular bleed. He denies feeling weak or lightheaded at this time. According to ED resident, while in ED pt had large amount of laila red blood per rectum. Bleeding scan 12/25/2017 IMPRESSION: The delayed images demonstrate no evidence of an active GI hemorrhage. EGD 12/27/2016 IMPRESSION: normal GE junction, mmed-sized hiatal hernia, and duodenal diverticulum. Resident, , states he spoke with Dr. Goel, general surgery and he plans on seeing the pt in consult. In ED WBC 7.8, hgb 15.9, hct 45.4, plt 228. Na 137, K 4.3, BUN 23, Cr 1.03, glucose 111. Urine bili moderate, ketones 15, urine protein 30. CT abdomen and pelvis IMPRESSION: Extensive diverticulosis throughout the large bowel, but without CT evidence diverticulitis. Small hiatal hernia. Mural thickening within lower esophagus, raise the possibility of esophagitis. Correlate clinically. Past Med Surg Social Fam HX - Past Medical History Medical history: hypertension, other Additional medical history: diverticulosis Psychiatric history: no psych history - Past Surgical History Surgical History: other - Social History Smoking Status: Never smoker Smokeless Tobacco Status: No Alcohol use: none Drug use: marijuana - Family History Mother Living Status: Hx Family Respiratory Disorders: Yes (Emphysema) Hx Family GI Disorders: No Father Living Status: Hx Family Respiratory Disorders: Yes (Emphysema) Hx Family GI Disorders: No Sister Living Status: Age at : 74 Hx Family Cardiac Disorders: Yes (pacemaker) Hx Family Respiratory Disorders: Yes (emphysema) Internal Medicine - H&P: Meds Lisinopril [Zestril] 20 mg PO DAILY 12/19/16 [History] Omeprazole [PriLOSEC] 20 mg PO DAILY #30 cap 12/29/16 [Rx] Psyllium [Metamucil Fiber Singles Packet] 1 packet PO TID #60 powd.pack [Rx] 3 Allergy/AdvReac Type Severity Reaction Status Date / Time acetaminophen Allergy Itching Verified 04/05/18 16:59 [From Tylenol-Codeine #3] codeine Allergy Itching Verified 04/05/18 16:59 [From Tylenol-Codeine #3] doxycycline Allergy Rash Verified 04/05/18 16:59 tree and shrub pollen Allergy Itching Verified 04/05/18 16:59 All Systems PM: A 10-system review of systems was performed and is negative for pertinent findings except as documented above in the HPI. - Constitutional Vitals: Temp Pulse Resp BP Pulse Ox 97.6 F 61 15 140/85 97 04/05/18 18:19 04/05/18 18:19 04/05/18 18:19 04/05/18 18:19 04/05/18 18:19 General appearance: Present: A&O X 3, no acute distress - Head Head exam: Present: atraumatic, normocephalic - Eye Eye exam: Present: PERRL, conjuntiva pink, sclera anicteric Pupils: Present: PERRL - Neck Neck exam general surgery: Present: supple, trachea midline. Absent: lymphadenopathy - Respiratory Respiratory exam: Present: CTAB. Absent: accessory muscle use, rales, rhonchi, wheezes - Cardiovascular Cardiovascular exam: Present: RRR, +S1, +S2. Absent: diastolic murmur, gallop, rubs, systolic murmur - GI/Abdominal GI/Abdominal exam: Present: normal bowel sounds, soft, no peritoneal signs. Absent: distended, tenderness - Extremities Exam Extremities exam: Present: warm, radial pulses palpable and symmetrical. Absent : calf tenderness, cyanotic, pedal edema - Neurological Exam Neurological exam: Present: CN II-XII intact, oriented X3, no focal deficits. Absent: pronater drift, facial droop, speech deficit - Skin Skin exam: Present: dry, intact Internal Med - H&P Results - Labs CBC & Chem 7: 04/05/18 14:33 04/05/18 14:33 - Assessment and plan (1) Hematochezia Current Visit: Yes Status: Acute Assessment and plan: Laila bright red blood per rectum. Will monitor hgb Q6 hr. NPO for now ED Resident discussed with Dr. Goel and he agrees gerard see the patient in consult. (2) Hypertension Current Visit: No Status: Chronic Assessment and plan: On Lisinopril. Will hold for now as pt is NPO. Will check orthostatic vitals. Qualifiers: Hypertension type: essential hypertension Qualified Code(s): I10 - Essential (primary) hypertension (3) DVT prophylaxis Current Visit: No Status: Acute Assessment and plan: SCD (4) Diverticulosis Current Visit: Yes Status: Acute Assessment and plan: Pt has known hx diverticular bleed. CT abdomen and pelvis IMPRESSION: Extensive diverticulosis throughout the large bowel, but without CT evidence diverticulitis. Small hiatal hernia. Mural thickening within lower esophagus, raise the possibility of esophagitis. Correlate clinically. Qualifiers: Diverticulosis site: diverticulosis of large intestine Diverticulosis bleeding: diverticulosis with bleeding Qualified Code(s): K57.31 - Diverticulosis of large intestine without perforation or abscess with bleeding - Time Spent With Patient Total time spent is greater than 50% in coordination of care (as documented) at patient's floor/unit and/or counseling patient: 25 - 35 minutes
[2018-04-05] MEDS ORDERED: Acetaminophen 325 MG TABLET PO PRN (20:04)
[2018-04-05] MEDS ORDERED: Naloxone 0.4 MG/ML INJ IVP PRN (20:04)
[2018-04-05] MEDS: Pantoprazole 40 MG in 0.9 % Sodium Chloride Mini Bag 100 ML IVC SCH (20:21)
[2018-04-05] MEDS: 0.9 % Sodium Chloride 1,000 ML IVC SCH (20:21)
[2018-04-05 20:26] LABS: Hemoglobin 14.7 g/dL (12.9-16.9)
[2018-04-06] MEDS: Pantoprazole 40 MG in 0.9 % Sodium Chloride Mini Bag 100 ML IVC SCH ×5 (00:58→22:53)
[2018-04-06 07:41] LABS: BUN/Creatinine Ratio 24 (6-26); Blood Urea Nitrogen 21 mg/dL (8-23); Calcium 8.5 mg/dL (8.6-10.3); Carbon Dioxide 22 mEq/L (23-29); Chloride 111 mEq/L (98-107); Glucose 108 mg/dL (70-105); Osmolality,Calculated 290 (280-300); Potassium 4.3 mEq/L (3.5-5.1); Sodium 138 mEq/L (136-145); eGFR For African Americans > 60 (> 60); eGFR For Non-African Americans > 60 (> 60)
[2018-04-06] MEDS ORDERED: Lisinopril 20 MG TABLET PO SCH (09:00)
--- NOTE | 2018-04-06 09:48 | General Surgery Consult Note ---
<Gianni Mohamud R - Last Filed: 04/06/18 12:41> Date of Encounter: 04/06/18 Time of Encounter: 07:40 Assessment and Plan (1) GI bleed Current Visit: Yes Status: Acute Hgb and vitals stable. Dark blood on rectal exam - possibly old dried blood Colonoscopy & EGD 2016 without concerning findings Bleeding scan showed no active bleeding PLAN: Clear liquid diet (nothing red) and bowel prep to clear out the bowels Continue to monitor CBC and symptoms - reassess in AM if scope is needed Qualifiers: GI bleed type/associated pathology: unspecified gastrointestinal hemorrhage type Qualified Code(s): K92.2 - Gastrointestinal hemorrhage, unspecified History of Present Illness Consult date: 04/05/18 Reason for consult: other (lower GI bleed) Requesting physician: Socrates Austin History of present illness: 70 year oold male with PMH of HTN, diverticulosis, and frequent diarrhea, presented to [facility] with a 4 day history of bloody BM. He states that his stools are loose like normal, but now with bright red blood. Yesterday he was having some intermittent, crampy, diffuse abdominal pain, but this has resolved. He denies other symptoms. Denies fevers, chills, chest pain, back pain, nausea, vomiting, hematemesis, or melena. Denies any anticoagulation, aspirin, or NSAID use. This happened to him in Nov 2016 and bleeding eventually resolved on it's own. Colonoscopy (X2) at that time showed diverticulosis without bleeding, 8mm non-bleeding polyp at ileocecal valve (removed), 3mm non-bleeding polyp in ascending colon, and internal hemorrhoids. EGD showed duodenal diverticula without bleeding and hiatal hernia. CT yesterday showed diverticual without evidence of diverticulitis. Bleeding scan showed no active bleed. Past Med Surg Social Fam HX - Past Medical History Medical history: hypertension, other Additional medical history: diverticulosis Psychiatric history: no psych history - Past Surgical History Surgical History: other - Social History Smoking Status: Never smoker Smokeless Tobacco Status: No Alcohol use: none Drug use: marijuana - Family History Mother Living Status: Hx Family Respiratory Disorders: Yes (Emphysema) Hx Family GI Disorders: No Father Living Status: Hx Family Respiratory Disorders: Yes (Emphysema) Hx Family GI Disorders: No Sister Living Status: Age at : 74 Hx Family Cardiac Disorders: Yes (pacemaker) Hx Family Respiratory Disorders: Yes (emphysema) Medications and Allergies Lisinopril [Zestril] 20 mg PO DAILY 12/19/16 [History] Omeprazole [PriLOSEC] 20 mg PO DAILY #30 cap 12/29/16 [Rx] Psyllium [Metamucil Fiber Singles Packet] 1 packet PO TID #60 powd.pack [Rx] 3 Allergy/AdvReac Type Severity Reaction Status Date / Time acetaminophen Allergy Itching Verified 04/05/18 16:59 [From Tylenol-Codeine #3] codeine Allergy Itching Verified 04/05/18 16:59 [From Tylenol-Codeine #3] doxycycline Allergy Rash Verified 04/05/18 16:59 tree and shrub pollen Allergy Itching Verified 04/05/18 16:59 Review of Systems All systems PM: reviewed and no additional remarkable complaints except as stated All systems PM: The remainder of the systems were reviewed and are negative General Surgery Exam Initial Vital Signs Temp Pulse Resp BP Pulse Ox 97.7 F 82 18 147/87 97 04/05/18 13:50 04/05/18 13:50 04/05/18 13:50 04/05/18 13:50 04/05/18 13:50 - General physical appearance well developed, well nourished, no distress - Respiratory normal expansion, normal respiratory effort, clear to auscultation - Cardiovascular Cardiovascular exam: Present: RRR, no murmurs/rubs/gallops - Abdomen Abdomen general surgery: Present: bowel sounds present, soft, non tender - Integumentary Integumentary general surgery: Present: warm and dry, no abnormal pigmentation - Neurologic Present: CN 2-12 grossly intact, normal coordination - Psychiatric Psychiatric general surgery: Present: A&Ox3, appropriate, speech is normal, memory intact Exam Initial Vital Signs Temp Pulse Resp BP Pulse Ox 97.7 F 82 18 147/87 97 04/05/18 13:50 04/05/18 13:50 04/05/18 13:50 04/05/18 13:50 04/05/18 13:50 Results - Labs 04/06/18 09:35 04/06/18 06:41 Abnormal lab results Chloride 111 mEq/L (98-107) H 04/06/18 06:41 Carbon Dioxide 22 mEq/L (23-29) L 04/06/18 06:41 Glucose 108 mg/dL (70-105) H 04/06/18 06:41 Calcium 8.5 mg/dL (8.6-10.3) L 04/06/18 06:41 Urine Protein 30 mg/dL (Neg-Trace) H 04/05/18 14:26 Urine Ketones 15 mg/dL (Negative) H 04/05/18 14:26 Urine Bilirubin Moderate (Negative) H 04/05/18 14:26 Stool Occult Blood Positive (Negative) A 04/06/18 00:35 Diabetes panel 04/06/18 Range/Units 06:41 Sodium 138 (136-145) mEq/L Potassium 4.3 (3.5-5.1) mEq/L Chloride 111 H (98-107) mEq/L Carbon Dioxide 22 L (23-29) mEq/L BUN 21 (8-23) mg/dL Creatinine 0.86 (0.70-1.30) mg/dL Glucose 108 H (70-105) mg/dL Calcium 8.5 L (8.6-10.3) mg/dL Calcium panel 04/06/18 Range/Units 06:41 Calcium 8.5 L (8.6-10.3) mg/dL Pituitary panel 04/06/18 Range/Units 06:41 Sodium 138 (136-145) mEq/L Potassium 4.3 (3.5-5.1) mEq/L Chloride 111 H (98-107) mEq/L Carbon Dioxide 22 L (23-29) mEq/L BUN 21 (8-23) mg/dL Creatinine 0.86 (0.70-1.30) mg/dL Glucose 108 H (70-105) mg/dL Calcium 8.5 L (8.6-10.3) mg/dL Adrenal panel 04/06/18 Range/Units 06:41 Sodium 138 (136-145) mEq/L Potassium 4.3 (3.5-5.1) mEq/L Chloride 111 H (98-107) mEq/L Carbon Dioxide 22 L (23-29) mEq/L BUN 21 (8-23) mg/dL Creatinine 0.86 (0.70-1.30) mg/dL Glucose 108 H (70-105) mg/dL Calcium 8.5 L (8.6-10.3) mg/dL All other labs normal. Consult Discharge Plan - Plan Instructions: Gastrointestinal Bleeding (ED) [facility]: [facility]Primary Care Provider[facility] - <Addison Goel - Last Filed: 04/06/18 14:23> Date of Encounter: 04/06/18 Review of Systems All systems PM: The remainder of the systems were reviewed and are negative General Surgery Exam Initial Vital Signs Temp Pulse Resp BP Pulse Ox 97.7 F 82 18 147/87 97 04/05/18 13:50 04/05/18 13:50 04/05/18 13:50 04/05/18 13:50 04/05/18 13:50 Exam Initial Vital Signs Temp Pulse Resp BP Pulse Ox 97.7 F 82 18 147/87 97 04/05/18 13:50 04/05/18 13:50 04/05/18 13:50 04/05/18 13:50 04/05/18 13:50 Results - Labs 04/06/18 09:35 04/06/18 06:41 Abnormal lab results Chloride 111 mEq/L (98-107) H 04/06/18 06:41 Carbon Dioxide 22 mEq/L (23-29) L 04/06/18 06:41 Glucose 108 mg/dL (70-105) H 04/06/18 06:41 Calcium 8.5 mg/dL (8.6-10.3) L 04/06/18 06:41 Urine Protein 30 mg/dL (Neg-Trace) H 04/05/18 14:26 Urine Ketones 15 mg/dL (Negative) H 04/05/18 14:26 Urine Bilirubin Moderate (Negative) H 04/05/18 14:26 Stool Occult Blood Positive (Negative) A 04/06/18 00:35 Diabetes panel 04/06/18 Range/Units 06:41 Sodium 138 (136-145) mEq/L Potassium 4.3 (3.5-5.1) mEq/L Chloride 111 H (98-107) mEq/L Carbon Dioxide 22 L (23-29) mEq/L BUN 21 (8-23) mg/dL Creatinine 0.86 (0.70-1.30) mg/dL Glucose 108 H (70-105) mg/dL Calcium 8.5 L (8.6-10.3) mg/dL Calcium panel 04/06/18 Range/Units 06:41 Calcium 8.5 L (8.6-10.3) mg/dL Pituitary panel 04/06/18 Range/Units 06:41 Sodium 138 (136-145) mEq/L Potassium 4.3 (3.5-5.1) mEq/L Chloride 111 H (98-107) mEq/L Carbon Dioxide 22 L (23-29) mEq/L BUN 21 (8-23) mg/dL Creatinine 0.86 (0.70-1.30) mg/dL Glucose 108 H (70-105) mg/dL Calcium 8.5 L (8.6-10.3) mg/dL Adrenal panel 04/06/18 Range/Units 06:41 Sodium 138 (136-145) mEq/L Potassium 4.3 (3.5-5.1) mEq/L Chloride 111 H (98-107) mEq/L Carbon Dioxide 22 L (23-29) mEq/L BUN 21 (8-23) mg/dL Creatinine 0.86 (0.70-1.30) mg/dL Glucose 108 H (70-105) mg/dL Calcium 8.5 L (8.6-10.3) mg/dL All other labs normal. - Attending Attestation I examined this patient and my medical decision-making was reviewed with the Resident Physician. I agree with the documented findings, disposition and treatment plan as described except to the extent set forth below. I reviewed the above assessment and evaluation and agree with the above plan. Noted history of rectal bleeding with the past 4 days. Mild lower abdominal pain. Patient states that he has had an episode of rectal bleeding today but yesterday had brown bowel movement. He had a colonoscopy and EGD last year. No pain to palpation and laboratory studies show a hemoglobin level that is normal (14.7 yesterday and 14.2 day). He had a bleeding scan that was also negative. It does not appear denies having any active bleeding and a rectal examination was performed here which showed slightly reddish appearing stool within the rectal vault. Of note; the bleeding scan suggest possible active inflammation rather than hemorrhage in the GI tract, however the CT scan of the abdomen and pelvis does not show any evidence of signs of inflammation. I would recommend flushing his GI tract with MiraLAX/Gatorade to see whether or not he truly has any residual blood within his stool. If his hemoglobin remains stable then I would recommend follow with GI as an outpatient.
[2018-04-06 09:51] LABS: Basophils % 0.7 %; Eosinophils # 0.1 K/mcL (0.0-0.6); Eosinophils % 2.6 %; Hematocrit 40.5 % (37.5-50.1); Hemoglobin 14.2 g/dL (12.9-16.9); Immature Granulocytes % 0.2 % (0-4); Lymphocytes # 1.9 K/mcL (0.6-4.6); Lymphocytes % 34.9 %; Mean Corpuscular HGB Conc 35.1 g/dL (31.6-35.5); Mean Corpuscular Hemoglobin 31.8 pg (28.0-33.3); Mean Corpuscular Volume 90.6 fL (83.0-100.0); Mean Platelet Volume 9.9 fL (9.4-12.4); Monocytes # 0.4 K/mcL (0.0-1.3); Neutrophils # 2.9 K/mcL (1.6-8.9); Platelet Count 167 K/mcL (140-400); Red Blood Count 4.47 M/mcL (4.19-5.50); Red Cell Distribution Width 12.2 % (11.5-14.5); Segmented Neutrophils % 53.6 %
[2018-04-06] MEDS: 0.9 % Sodium Chloride 1,000 ML IVC SCH ×2 (10:54→22:51)
[2018-04-06] MEDS ORDERED: Polyethylene Glycol 3350 255 GM POWDER PO ONE (12:33)
[2018-04-06 13:04] LABS: INR 1.1
[2018-04-06 13:06] LABS: Activated Partial Thrombo Time 31.7 Seconds (26.0-36.0)
--- NOTE | 2018-04-06 16:56 | Internal Med Progress Note ---
Date of Encounter: 04/06/18 Time of Encounter: 11:00 - Assessment and plan (1) GI bleed Current Visit: Yes Status: Acute Assessment and plan: Patient reports a several day history of bloody stools. Patient without anemia on labs and hemodynamically stable Surgery consulted with recommendations for potential scope in the morning Qualifiers: GI bleed type/associated pathology: unspecified gastrointestinal hemorrhage type Qualified Code(s): K92.2 - Gastrointestinal hemorrhage, unspecified (2) Hypertension Current Visit: No Status: Chronic Assessment and plan: Pressures controlled; continue home medications Qualifiers: Hypertension type: essential hypertension Qualified Code(s): I10 - Essential (primary) hypertension (3) DVT prophylaxis Current Visit: No Status: Acute Assessment and plan: SCDs - Time Spent With Patient Total time spent is greater than 50% in coordination of care (as documented) at patient's floor/unit and/or counseling patient: - Subjective Interval history: Patient reports a several day history of bloody stools - Constitutional Vitals: Temp Pulse Resp BP Pulse Ox 98.0 F 56 14 153/93 98 04/06/18 16:21 04/06/18 16:21 04/06/18 16:21 04/06/18 16:21 04/06/18 16:21 General appearance: Present: A&O X 3, no acute distress - Respiratory Respiratory exam: Present: CTAB. Absent: accessory muscle use, rales, rhonchi, wheezes - Cardiovascular Cardiovascular exam: Present: RRR, +S1, +S2. Absent: diastolic murmur, gallop, rubs, systolic murmur - GI/Abdominal GI/Abdominal exam: Present: normal bowel sounds, soft, no peritoneal signs. Absent: distended, tenderness Internal Medicine: Result - Labs CBC & Chem 7: 04/06/18 09:35 04/06/18 06:41 Labs: Short CBC 04/05/18 04/06/18 Range/Units 20:16 09:35 WBC 5.4 (4.3-11.1) K/mcL Hgb 14.7 14.2 (12.9-16.9) g/dL Hct 42.0 40.5 (37.5-50.1) % Plt Count 167 (140-400) K/mcL Neutrophils # 2.9 (1.6-8.9) K/mcL BMP 04/06/18 06:41 Sodium 138 Potassium 4.3 Chloride 111 H Carbon Dioxide 22 L BUN 21 Creatinine 0.86 Glucose 108 H Calcium 8.5 L - ABG Interpretation ABG results: PT/INR, D-dimer PT 12.0 Seconds (9.4-12.1) 04/06/18 12:45 - Impressions Impressions GI Bleed Scan Nuclear Medicine 04/05/18 19:43 IMPRESSION: The pattern of radiopharmaceutical accumulation in the abdomen bilaterally suggests active inflammation rather than hemorrhage into the GI tract. RECOMMENDATIONS: If the patient shows hemodynamic signs of an active bleed in the next 20 hours, additional images can be acquired. D/ / Jigar Maddox MD / Jigar Maddox MD Interpreting Provider: Jigar Maddox MD - VTE Reasons for not Prescribing Prophylaxis: Medical contraindication Consult Discharge Plan - Plan Instructions: Gastrointestinal Bleeding (ED) [facility]errals: [facility] [Primary Care Provider] -
[2018-04-07] MEDS: Pantoprazole 40 MG in 0.9 % Sodium Chloride Mini Bag 100 ML IVC SCH ×2 (04:23→10:07)
[2018-04-07 04:38] LABS: Basophils # 0.1 K/mcL (0.0-0.2); Basophils % 1.1 %; Eosinophils # 0.2 K/mcL (0.0-0.6); Hematocrit 38.9 % (37.5-50.1); Hemoglobin 13.6 g/dL (12.9-16.9); Immature Granulocytes % 0.4 % (0-4); Lymphocytes # 1.9 K/mcL (0.6-4.6); Lymphocytes % 35.2 %; Mean Corpuscular Hemoglobin 31.6 pg (28.0-33.3); Mean Corpuscular Volume 90.3 fL (83.0-100.0); Mean Platelet Volume 9.9 fL (9.4-12.4); Monocytes # 0.5 K/mcL (0.0-1.3); Monocytes % 8.6 %; Neutrophils # 2.8 K/mcL (1.6-8.9); Platelet Count 173 K/mcL (140-400); Red Blood Count 4.31 M/mcL (4.19-5.50); Segmented Neutrophils % 50.7 %
[2018-04-07 04:58] LABS: BUN/Creatinine Ratio 16 (6-26); Blood Urea Nitrogen 13 mg/dL (8-23); Calcium 8.5 mg/dL (8.6-10.3); Carbon Dioxide 20 mEq/L (23-29); Chloride 114 mEq/L (98-107); Glucose 112 mg/dL (70-105); Osmolality,Calculated 289 (280-300); Potassium 4.1 mEq/L (3.5-5.1); Sodium 139 mEq/L (136-145); eGFR For African Americans > 60 (> 60); eGFR For Non-African Americans > 60 (> 60)
--- NOTE | 2018-04-07 09:44 | General Surgery Progress Note ---
Date of Encounter: 04/07/18 Time of Encounter: 07:56 - Assessment and Plan (1) Rectal bleeding Current Visit: No Status: Acute I reviewed the patient's laboratory studies which show a hemoglobin still within normal limits. He still is having small amounts of red streaks in his bowel movements. I do think since he has already had a bowel prep that it would be reasonable to proceed with a colonoscopy at this time. We will add the case for this afternoon. The patient agrees with the above plan. Subjective Patient reports: no new complaints, other (He states that he has had several BMs. Red streaks but much less. No abdominal pain.) Objective Vital Signs - Last 8 Hours Temp Pulse Resp BP Pulse Ox 04/07/18 06:53 97.6 F 55 16 145/84 98 04/07/18 03:57 98.1 F 63 15 148/79 97 Intake and Output 04/06/18 04/07/18 04/07/18 23:59 07:59 15:59 Intake Total 1560 / 1560 100 / 100 Output Total 0 / 0 0 / 0 Balance 1560 / 1560 100 / 100 Intake: IV Fluids 1200 / 1200 100 / 100 0.9 % Sodium Chloride 1,000 ML 1000 / 1000 @ 75 mls/hr IVC .[id number] ANJELICA Rx #:[id number] Protonix 40 MG In 0.9 % Sodium 200 / 200 100 / 100 Chloride (Mini-Bag +) 100 ML @ 20 mls/hr IVC .Q5H ANJELICA Rx#: [id number] Oral 360 / 360 0 / 0 Output: Urine 0 / 0 0 / 0 Other: Meal clears NPO BREAKFAST # Voids 2 Weight 84.5 kg Blood Glucose* 105 Patient Weight 04/07/18 23:59 Weight 84.5 kg - General physical appearance well nourished, no distress - Respiratory normal expansion, normal respiratory effort - Abdomen Abdomen: Present: bowel sounds present, soft, non tender - Labs 04/07/18 04:23 04/07/18 04:23 Diabetes panel 04/07/18 Range/Units 04:23 Sodium 139 (136-145) mEq/L Potassium 4.1 (3.5-5.1) mEq/L Chloride 114 H (98-107) mEq/L Carbon Dioxide 20 L (23-29) mEq/L BUN 13 (8-23) mg/dL Creatinine 0.83 (0.70-1.30) mg/dL Glucose 112 H (70-105) mg/dL Calcium 8.5 L (8.6-10.3) mg/dL Calcium panel 04/07/18 Range/Units 04:23 Calcium 8.5 L (8.6-10.3) mg/dL Pituitary panel 04/07/18 Range/Units 04:23 Sodium 139 (136-145) mEq/L Potassium 4.1 (3.5-5.1) mEq/L Chloride 114 H (98-107) mEq/L Carbon Dioxide 20 L (23-29) mEq/L BUN 13 (8-23) mg/dL Creatinine 0.83 (0.70-1.30) mg/dL Glucose 112 H (70-105) mg/dL Calcium 8.5 L (8.6-10.3) mg/dL Adrenal panel 04/07/18 Range/Units 04:23 Sodium 139 (136-145) mEq/L Potassium 4.1 (3.5-5.1) mEq/L Chloride 114 H (98-107) mEq/L Carbon Dioxide 20 L (23-29) mEq/L BUN 13 (8-23) mg/dL Creatinine 0.83 (0.70-1.30) mg/dL Glucose 112 H (70-105) mg/dL Calcium 8.5 L (8.6-10.3) mg/dL - VTE Reasons for not Prescribing Prophylaxis: Medical contraindication Consult Discharge Plan - Plan Instructions: Gastrointestinal Bleeding (ED) Referrals: [facility] [Primary Care Provider] -
[2018-04-07] MEDS ORDERED: *HR* Promethazine 25 MG/ML VIAL IVP ONE (12:03)
[2018-04-07] MEDS ORDERED: Simethicone 40 MG/0.6 ML MLS IR ONE (12:03)
[2018-04-07] MEDS ORDERED: *HR* FentaNYL (PF) 100 MCG/2 ML VIAL IVP ONE (12:03)
[2018-04-07] MEDS ORDERED: *HR* Midazolam HCl 2 MG/2 ML VIAL IVP ONE ×3 (12:03→12:31)
--- NOTE | 2018-04-07 12:04 | Pre-Sedation Evaluation ---
Pre-sedation evaluation - Pre-sedation checklist Procedure: egd Recent Vitals: Last Vital Signs Temp 97.6 F 04/07/18 10:32 Pulse 58 04/07/18 10:32 Resp 16 04/07/18 10:32 BP 148/84 04/07/18 10:32 Pulse Ox 99 04/07/18 10:32 H&P (including ROS) documented in medical record: Yes Previous reaction to sedatives/anesthetics: No Dietary Status: NPO 6 hours prior to procedure Airway Assessment: Patient can open mouth completely, TMJ function normal Dentition: No loose teeth or bridges Possible difficult airway: No ASA Classification *see protocol: CLASS III-Severe systemic disease Plan of Care: Pt appropriate candidate for procedure/moderate/conscious sedation
[2018-04-07] MEDS ORDERED: 0.9 % Sodium Chloride 1,000 ML IVC SCH (12:15)
[2018-04-07] MEDS ORDERED: *HR* Midazolam HCl 5 MG/5 ML VIAL IVP ONE ×2 (12:29→13:33)
--- NOTE | 2018-04-07 13:13 | Event Note ---
Date of Encounter: 04/07/18 Time of Encounter: 13:11 Colonoscopy performed. Diverticulosis noted throughout the entire colon. Red hematin staining with sputum clots but no active source of bleed. The terminal ileum was intubated with no evidence of hematin staining. This suggests that the source of the GI bleed is colonic in nature. Will start clear liquids for now continue observation and repeat CBC in a.m.
[2018-04-07] MEDS ORDERED: *HR* FentaNYL (PF) 100 MCG/2 ML VIAL ONE (13:34)
[2018-04-07] MEDS ORDERED: *HR* LORazepam 0.5 MG TABLET PO ONE (16:01)
[2018-04-07] MEDS: 0.9 % Sodium Chloride 1,000 ML IVC SCH (17:07)
[2018-04-07] MEDS: Pantoprazole 40 MG VIAL IVP SCH (17:08)
--- NOTE | 2018-04-07 18:46 | Internal Med Progress Note ---
Date of Encounter: 04/07/18 Time of Encounter: 11:00 - Assessment and plan (1) GI bleed Current Visit: Yes Status: Acute Assessment and plan: Patient reports a several day history of bloody stools. Patient without anemia on labs and hemodynamically stable Surgery consulted with recommendations for colonoscopy which showed diverticulosis throughout, red hematin staining with sputum clots. Recommendations to monitor patient overnight and to start clear liquid diet. Appreciate any further recommendations. Qualifiers: GI bleed type/associated pathology: unspecified gastrointestinal hemorrhage type Qualified Code(s): K92.2 - Gastrointestinal hemorrhage, unspecified (2) Hypertension Current Visit: No Status: Chronic Assessment and plan: Pressures controlled; continue home medications Qualifiers: Hypertension type: essential hypertension Qualified Code(s): I10 - Essential (primary) hypertension (3) DVT prophylaxis Current Visit: No Status: Acute Assessment and plan: SCDs - Time Spent With Patient Total time spent is greater than 50% in coordination of care (as documented) at patient's floor/unit and/or counseling patient: - Subjective Interval history: Patient reports a several day history of bloody stools Colonoscopy today showed diverticulosis throughout, red hematin staining with sputum clots. Patient has been hemodynamically stable and is not anemic - Constitutional Vitals: Temp Pulse Resp BP Pulse Ox 97.8 F 65 16 160/72 97 04/07/18 14:20 04/07/18 15:13 04/07/18 15:13 04/07/18 15:29 04/07/18 15:13 General appearance: Present: A&O X 3, no acute distress - Respiratory Respiratory exam: Present: CTAB. Absent: accessory muscle use, rales, rhonchi, wheezes - Cardiovascular Cardiovascular exam: Present: RRR, +S1, +S2. Absent: diastolic murmur, gallop, rubs, systolic murmur Internal Medicine: Result - Labs CBC & Chem 7: 04/07/18 04:23 04/07/18 04:23 Labs: Short CBC 04/07/18 Range/Units 04:23 WBC 5.5 (4.3-11.1) K/mcL Hgb 13.6 (12.9-16.9) g/dL Hct 38.9 (37.5-50.1) % Plt Count 173 (140-400) K/mcL Neutrophils # 2.8 (1.6-8.9) K/mcL BMP 04/07/18 04:23 Sodium 139 Potassium 4.1 Chloride 114 H Carbon Dioxide 20 L BUN 13 Creatinine 0.83 Glucose 112 H Calcium 8.5 L - ABG Interpretation ABG results: PT/INR, D-dimer PT 12.0 Seconds (9.4-12.1) 04/06/18 12:45 - VTE Reasons for not Prescribing Prophylaxis: Medical contraindication Consult Discharge Plan - Plan Instructions: Gastrointestinal Bleeding (ED) Referrals: [facility] [Primary Care Provider] -
[2018-04-08 03:25] LABS: Basophils # 0.1 K/mcL (0.0-0.2); Basophils % 1.1 %; Eosinophils # 0.3 K/mcL (0.0-0.6); Eosinophils % 5.9 %; Hematocrit 35.7 % (37.5-50.1); Hemoglobin 12.8 g/dL (12.9-16.9); Immature Granulocytes % 0.4 % (0-4); Lymphocytes # 1.8 K/mcL (0.6-4.6); Lymphocytes % 37.5 %; Mean Corpuscular HGB Conc 35.9 g/dL (31.6-35.5); Mean Corpuscular Hemoglobin 32.2 pg (28.0-33.3); Mean Corpuscular Volume 89.9 fL (83.0-100.0); Mean Platelet Volume 9.7 fL (9.4-12.4); Monocytes # 0.4 K/mcL (0.0-1.3); Monocytes % 9.3 %; Neutrophils # 2.2 K/mcL (1.6-8.9); Platelet Count 171 K/mcL (140-400); Red Blood Count 3.97 M/mcL (4.19-5.50); Red Cell Distribution Width 11.9 % (11.5-14.5); Segmented Neutrophils % 45.8 %
[2018-04-08] MEDS: 0.9 % Sodium Chloride 1,000 ML IVC SCH (06:30)
[2018-04-08] MEDS: Pantoprazole 40 MG VIAL IVP SCH (06:31)
[2018-04-08] MEDS ORDERED: Lisinopril 20 MG TABLET PO SCH (09:15)
[2018-04-08 10:51] VITALS: BP 158/93
--- NOTE | 2018-04-08 11:00 | General Surgery Progress Note ---
<Blank Beckett - Last Filed: 04/08/18 12:18> Date of Encounter: 04/08/18 Time of Encounter: 11:00 - Assessment and Plan (1) Diverticulosis Current Visit: No Status: Acute Colonoscopy performed. Diverticulosis noted throughout the entire colon. Red hematin staining with sputum clots but no active source of bleed. The terminal ileum was intubated with no evidence of hematin staining. This suggests that the source of the GI bleed is colonic in nature. Tolerating clear liquid diet and request advance of diet. He also request to be DC'd. His hemoglobin is stable this a.m. Okay to advance diet as tolerated and discharge from a surgical standpoint. No specimen's were collected. Follow up with PCP. Surgery will sign off at this time. Thank you for allowing us to participate in Mr. Delcid's care. Please reconsult if questions or needs arise PPI per primary team if indicated. Would avoid NSAIDs if possible until directed otherwise. Qualifiers: Diverticulosis site: diverticulosis of large intestine Diverticulosis bleeding: diverticulosis with bleeding Qualified Code(s): K57.31 - Diverticulosis of large intestine without perforation or abscess with bleeding (2) GI bleed Current Visit: Yes Status: Acute See assessment and plan above Qualifiers: GI bleed type/associated pathology: unspecified gastrointestinal hemorrhage type Qualified Code(s): K92.2 - Gastrointestinal hemorrhage, unspecified Subjective Patient reports: no new complaints, feels better, tolerating liquids well, tolerating a regular diet, flatus, bowel movement, afebrile Objective Vital Signs - Last 8 Hours Temp Pulse Resp BP Pulse Ox 04/08/18 10:51 97.7 F 56 20 158/93 97 04/08/18 09:37 61 138/84 04/08/18 08:20 97 04/08/18 07:06 97.7 F 56 16 167/89 97 04/08/18 04:28 97.7 F 56 16 149/89 96 Intake and Output 04/07/18 04/08/18 04/08/18 23:59 07:59 15:59 Intake Total 180 / 180 1618 / 1618 600 / 600 Output Total 1025 / 1025 300 / 300 Balance 180 / 180 593 / 593 300 / 300 Intake: IV Fluids 180 / 180 1618 / 1618 0.9 % Sodium Chloride 1,000 ML 180 / 180 1618 / 1618 @ 75 mls/hr IVC .[id number] ANJELICA Rx #:[id number] Oral 600 / 600 Output: Urine 1025 / 1025 300 / 300 Other: Meal Clears - General physical appearance well nourished, no distress - ENT atraumatic, normocephalic - Neck Neck exam: trachea midline, no venous distension - Respiratory normal expansion, normal respiratory effort, clear to auscultation - Cardiovascular Cardiovascular exam: Present: RRR - Abdomen Abdomen: Present: bowel sounds present, soft, non tender - Integumentary no abnormal pigmentation - Neurologic normal coordination, normal sensation - Musculoskeletal normal gait, normal posture - Psychiatric oriented to time, oriented to person, oriented to place, speech is normal, memory intact - Labs 04/08/18 03:04 04/07/18 04:23 - VTE Reasons for not Prescribing Prophylaxis: Medical contraindication Consult Discharge Plan - Plan Instructions: Omeprazole (By mouth), Gastrointestinal Bleeding (ED), Diverticulosis (DC), Diverticulosis Diet (GEN) Referrals: [facility] [Outside] - 04/14/18 2:15 pm Prescriptions: Omeprazole [PriLOSEC] 40 mg PO DAILY #30 cap <Addison Goel - Last Filed: 04/08/18 14:54> Date of Encounter: 04/08/18 - Assessment and Plan (1) Rectal bleeding Current Visit: No Status: Acute Objective Vital Signs - Last 8 Hours Temp Pulse Resp BP Pulse Ox 04/08/18 10:51 97.7 F 56 20 158/93 97 04/08/18 09:37 61 138/84 04/08/18 08:20 97 04/08/18 07:06 97.7 F 56 16 167/89 97 Intake and Output 04/07/18 04/08/18 04/08/18 23:59 07:59 15:59 Intake Total 180 / 180 1618 / 1618 600 / 600 Output Total 1025 / 1025 300 / 300 Balance 180 / 180 593 / 593 300 / 300 Intake: IV Fluids 180 / 180 1618 / 1618 0.9 % Sodium Chloride 1,000 ML 180 / 180 1618 / 1618 @ 75 mls/hr IVC .[id number] ANJELICA Rx #:[id number] Oral 600 / 600 Output: Urine 1025 / 1025 300 / 300 Other: Meal Clears - Labs 04/08/18 03:04 04/07/18 04:23 - Attending Attestation I have personally performed a face to face evaluation on this patient. I have reviewed and agree with the care plan. History and Exam by me shows: I reviewed the above and agree with the above plan.
--- NOTE | 2018-04-08 12:30 | Discharge Summary ---
- NOTES TO OUTPATIENT PROVIDER Notes to Outpatient Provider: Recommend routine hospital follow-up within 1-2 weeks Date of Encounter: 04/08/18 Time of Encounter: 12:26 - Discharge Diagnosis (1) GI bleed Priority: Primary Status: Acute Qualifiers: GI bleed type/associated pathology: unspecified gastrointestinal hemorrhage type Qualified Code(s): K92.2 - Gastrointestinal hemorrhage, unspecified (2) Hypertension Priority: Primary Status: Chronic Qualifiers: Hypertension type: essential hypertension Qualified Code(s): I10 - Essential (primary) hypertension Hospital course: Mr. Delcid is a 73 year old male with PMH HTN and diverticulitis presented to [facility] on with complaints of loose stool and bright red blood per rectum. He is placed in observation status for further workup and treatment. His work- up included an ABD CT that showed extensive diverticulosis throughout the large bowel, but without CT evidence diverticulitis, small hiatal hernia. He was evaluated by general surgery and underwent a colonoscopy that showed diverticulosis noted throughout the entire colon with red hematin staining with sputum clots but no active source of bleeding. Per General Surgery, bleeding source is likely colonic in nature. Bleeding in stool Society without intervention and he was tolerating regular diet at time of discharge. Symptoms improved and he requested discharge home. Advised to avoid NSAIDs until directed to resume by PCP. Also advised to return to ER if bleeding recurs. Discharge discussed with: patient (Seen and examined at bedside. Patient is new to me, information obtained from chart review and patient report. Says he had uneventful night, feels better. Requesting [facility]. No active bleeding.) - Time Spent with Patient Total time spent providing and/or coordinating discharge services: - Discharge Medications Prescriptions: Omeprazole [PriLOSEC] 40 mg PO DAILY #30 cap Home Medications: Lisinopril [Zestril] 20 mg PO DAILY 12/19/16 [History] Psyllium [Metamucil Fiber Singles Packet] 1 packet PO TID #60 powd.pack [Rx] Omeprazole [PriLOSEC] 40 mg PO DAILY #30 cap 04/08/18 [Rx] Allergies/Adverse Reactions: 3 Allergy/AdvReac Type Severity Reaction Status Date / Time acetaminophen Allergy Itching Verified 04/05/18 16:59 [From Tylenol-Codeine #3] codeine Allergy Itching Verified 04/05/18 16:59 [From Tylenol-Codeine #3] doxycycline Allergy Rash Verified 04/05/18 16:59 tree and shrub pollen Allergy Itching Verified 04/05/18 16:59 Date of admission: 04/05/18 17:23 Primary care physician: [facility] Discharging clinician: Lise Carroll Anticipated date of discharge: 04/08/18 - Constitutional Vitals: Temp Pulse Resp BP Pulse Ox 97.7 F 56 20 158/93 97 04/08/18 10:51 04/08/18 10:51 04/08/18 10:51 04/08/18 10:51 04/08/18 10:51 General appearance: Present: A&O X 3, no acute distress - Head Head exam: Present: atraumatic, normocephalic - Eye Eye exam: Present: PERRL, conjuntiva pink, sclera anicteric Pupils: Present: PERRL - Neck Neck exam general surgery: Present: supple, trachea midline. Absent: lymphadenopathy - Respiratory Respiratory exam: Present: CTAB. Absent: accessory muscle use, rales, rhonchi, wheezes - Cardiovascular Cardiovascular exam: Present: RRR, +S1, +S2. Absent: diastolic murmur, gallop, rubs, systolic murmur - GI/Abdominal GI/Abdominal exam: Present: normal bowel sounds, soft, no peritoneal signs. Absent: distended, tenderness - Extremities Exam Extremities exam: Present: warm, radial pulses palpable and symmetrical. Absent : calf tenderness, cyanotic, pedal edema - Neurological Exam Neurological exam: Present: CN II-XII intact, oriented X3, no focal deficits. Absent: pronater drift, facial droop, speech deficit - Skin Skin exam: Present: dry, intact - Patient Status Disposition: Home, Self-Care Condition: Good Functional capacity at discharge: independent ambulation Overall status at discharge: patient is back to baseline - Discharge Instructions Instructions: Gastrointestinal Bleeding (ED), Diverticulosis (DC), Diverticulosis Diet (GEN) Follow Up With: [facility] [Outside] - Diet and Activity Activity: increase activity as tolerated Diet: advance to your usual diet - VTE Reasons for not Prescribing Prophylaxis: Medical contraindication
== END 2018-04-08 15:05 | disposition home or self-care (01) ==
LOC: 3ANU 13:49 → EMEROO 13:49 → SUATTDRO 17:23 → 3ANU 17:52
PROVIDERS: ADMIT Internal Medicine; ATTEND Hospitalist